=== PATIENT | male | born 1965 | race Caucasian/White ===

== ENCOUNTER 2024-07-04 15:36 | Inpatient (IN) | payer BC ==
--- OUTSIDE RECORDS SUMMARY | 2024-07-04 15:40 | XMS REPORT | Continuity of Care Document ---
Author Name Unknown Address [address] [facility] [address] [place] [address] [facility] Address [address] [facility] [address] [facility] 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 Role Phone Melissa Mathews Primary Care Physician [phone] Ana Cristina Duval Attending Clinician Unavailable AARON LOPEZ Attending Clinician Adam Lopez MD, Aaron Eason Attending Clinician [phone] Reva Mckeon LVN Attending Clinician Melissa Marmolejo MD Attending Clinician + [phone] MELISSA MATHEWS Attending Clinician ERVIN Crowley Attending Clinician Unavail able ERVIN AVILA Attending Clinician Unavail able Ervin Avila MD Attending Clinician [phone] NERI PEREIRA Attending Clinician Unavail able NERI PEREIRA Attending Clinician Unavail able Neri Pereira MD Attending Clinician [phone] NERI PEREIRA Admitting Clinician Unavail able Payers Payer Name Policy Type Policy Number Effective Date Expirati on Date Source [facility] [id number] 2024 00:00:00 [employer] [facility] 6 [id number] [facility] C1 [id number] [facility] Problems Condition Name Condition Details Condition Category Status Onset Date Resolution Date Last Treatment Date Treating Clinician Comments Source 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 Disease Active 2023-03 00:00: 00 Memiveth Mark Epic Chronic constipati on Chronic constipati on Disease Active 2023-03 00:00: 00 Memiveth Mark Epic Allergic rhinitis Allergic rhinitis Disease Active 11-19 00:00: 00 Memoria maldonado Mark Epic Benign essential hypertensi on Benign essential hypertensi on Disease Active 11-19 00:00: 00 Radha Mark Epic Benign prostatic hyperplasi a Benign prostatic hyperplasi a Disease Active 11-19 00:00: 00 Memoria maldonado Mark Epic Chronic GERD Chronic GERD Disease Active 11-19 00:00: 00 Memoria maldonado Mark Epic Type 2 diabetes mellitus Type 2 diabetes mellitus Disease Active 11-19 00:00: 00 Radha Mark Epic Facial numbness Facial numbness Disease Active 11-19 00:00: 00 Memoria maldonado Mark Epic Mixed hyperlipid emia Mixed hyperlipid emia Disease Active 3 00:00: 00 Radha Mark Epic Lower urinary tract symptoms due to benign prostatic hypertroph y Lower urinary tract symptoms due to benign prostatic hyperplasi a Problem [facility] Impotence of organic origin ED (erectile dysfunctio n) Problem [facility] [id number] BPH loc w urin obs/LUTS Problem [facility] [id number] Prostate cancer screening Problem [facility] Allergies, Adverse Reactions, Alerts Allergy Name Allergy Type Status Severity Reaction(s) Onset Date Inactive Date Treating Clinician Comments Source NO KNOWN ALLERGIE S SYSTEMIC Active [facility] ALLERGIE S NOT ON FILE SYSTEMIC Active [facility] NO KNOWN ALLERGIE S SYSTEMIC Active [facility] NO KNOWN ALLERGIE S Drug Class Active [facility] NO KNOWN ALLERGIE S SYSTEMIC Active [facility] NO KNOWN ALLERGIE S SYSTEMIC Active [facility] Social History Social Habit Start Date Stop Date Quantity Comments Source Gender identity 2023-06-03 07:45:05 Identifies as male gender (finding) [facility] History of tobacco use Cigarette Smoker [facility] Sexual orientation M emoriiris [facility] Tobacco use and exposure 2023-11-30 00:00:00 2023-11-30 00:00:00 Smokeless tobacco non-user [facility] History of Social function 2023-11-30 00:00:00 2023-11-30 00:00:00 [facility] Sex assigned at 1965 00:00:00 1965 00:00:00 [facility] Smoking Status Start Date Stop Date Source Tobacco smoking consumption unknown [facility] Smokes tobacco daily Radha Mark [facility] Medications Ordered Medication Name Filled Medication Name Start Date Stop Date Current Medication? Ordering Clinician Indication Dosage Frequency Signature (SIG) Comments Components Source lisinopril 20 MG tablet lisinopril 20 MG tablet 06-02 00:00: 00 Yes [id number] 20mg Q.5D Take 1 tablet by mouth in the morning and 1 tablet in the evening. Goal BP < 130/80. Radha Choi omeprazole (PriLOSEC) [address] capsule omeprazole (PriLOSEC) [address] capsule 06-02 00:00: 00 11-29 23:59 :00 No [id number] 20mg Q24H Take 1 capsule by mouth daily as needed (heartburn /indigesti on). Radha Choi ibuprofen 800 MG tablet ibuprofen 800 MG tablet 06-02 00:00: 00 08-01 23:59 :00 No [id number] 800mg Q.5D Take 1 tablet by mouth 2 times a day as needed for moderate pain (4-6) (pain). Radha Choi atorvastati n (Lipitor) 20 MG tablet atorvastati n (Lipitor) 20 MG tablet 2023-03 00:00: 00 03-28 23:59 :00 No [id number] 20mg Take 1 tablet by mouth at bedtime. Radha Choi tamsulosin (Flomax) 0.4 MG 24 hr capsule tamsulosin (Flomax) 0.4 MG 24 hr capsule 2023-03 00:00: 00 02-21 23:59 :00 No [id number] .4mg QD Take 1 capsule by mouth 1 time each day. Radha Choi metFORMIN XR (Glucophage -XR) 500 MG 24 hr tablet metFORMIN XR (Glucophage -XR) 500 MG 24 hr tablet 2023-03 00:00: 00 08-20 23:59 :00 No [id number] 1000mg Q.5D Take 2 tablets by mouth in the morning and 2 tablets in the evening. Do not crush, chew, or split.. Radha Mark [facility] lisinopril 20 MG tablet lisinopril 20 MG tablet 2023-03 00:00: 00 06-02 00:00 :00 No [id number] 20mg QD Take 1 tablet by mouth 1 time each day. Goal BP < 130/80 Radha Mark [facility] multivit with minerals/jesica tein (MULTIVITAM IN 50 PLUS ORAL) 11-29 12:00: 58 Yes Take by mouth. [facility] sildenafiL 100 mg tablet 11-29 12:00: 34 11-29 00:00 :00 No 100mg Take 1 tablet by mouth once daily as needed. [facility] tamsulosin 0.4 mg 24 hr capsule 11-29 12:00: 12 Yes .4mg Take 1 capsule by mouth in the morning. [facility] omeprazole 20 mg capsule 11-29 12:00: 12 Yes 20mg Take 1 capsule by mouth in the morning. [facility] atorvastati n 10 mg tablet 11-29 12:00: 12 Yes 10mg Take 1 tablet by mouth every evening. [facility] aspirin 81 mg chewable tablet 11-29 12:00: 12 Yes 81mg Take 1 tablet by mouth in the morning. [facility] lisinopriL 20 mg tablet 11-20 00:00: 00 Yes TAKE 2 TABLETS BY MOUTH ONCE DAILY. GOAL BLOOD PRESSURE LESS THAN 130/80. [facility] atorvastati n (Lipitor) 10 MG tablet atorvastati n (Lipitor) 10 MG tablet 11-19 15:03: 44 11-19 00:00 :00 No 10mg Take 10 mg by mouth at bedtime. Radha Choi tamsulosin (Flomax) 0.4 MG 24 hr capsule tamsulosin (Flomax) 0.4 MG 24 hr capsule 11-19 14:06: 42 02-21 00:00 :00 No .4mg QD Take 0.4 mg by mouth 1 time each day. Radha Choi omeprazole (PriLOSEC) [address] capsule omeprazole (PriLOSEC) [address] capsule 11-19 00:00: 00 05-18 23:59 :00 No [id number] 20mg QD Take 1 capsule by mouth 1 time each day. Radha Choi lisinopril 20 MG tablet lisinopril 20 MG tablet 11-19 00:00: 00 02-21 00:00 :00 No [id number] 40mg QD Take 2 tablets by mouth 1 time each day. Goal BP < 130/80 Radha Choi atorvastati n (Lipitor) 20 MG tablet atorvastati n (Lipitor) 20 MG tablet 11-19 00:00: 00 02-21 00:00 :00 No [id number] 20mg Take 1 tablet by mouth at bedtime. Radha Choi buPROPion SR (Wellbutrin SR) 150 MG 12 hr tablet buPROPion SR (Wellbutrin SR) 150 MG 12 hr tablet 11-19 00:00: 00 02-21 00:00 :00 No [id number] 150mg Q.5D Take 1 tablet by mouth in the morning and 1 tablet in the evening. Start with 1 tab daily for 3 days and then increase to twice daily. Do not crush, chew, or split.. Radha Choi metFORMIN XR (Glucophage -XR) 500 MG 24 hr tablet metFORMIN XR (Glucophage -XR) 500 MG 24 hr tablet 11-19 00:00: 00 02-21 00:00 :00 No [id number] 1000mg Q.5D Take 2 tablets by mouth in the morning and 2 tablets in the evening. Do not crush, chew, or split.. Radha Choi iopamidol (ISOVUE 370-500 mL) injection 100 mL 11-15 01:15: 00 11-15 01:15 :00 No [id number] 100mL 100 mL, Intravenou s, ONCE, 1 dose, On Sun11/15/23 at 2014, Routine [facility] omeprazole (PriLOSEC) [address] capsule omeprazole (PriLOSEC) [address] capsule 11-02 00:00: 00 11-19 00:00 :00 No 1{capsu le} QD Take 1 capsule by mouth 1 time each day. Radha Choi Tadalafil 5 MG Tadalafil 5 MG 08 00:00: 00 No 1{table t_as_ne eded} QD Tadalafil 5 MG tadalafiL 5 mg tablet 07-17 00:00: 00 11-29 00:00 :00 No 5mg Take 1 tablet by mouth as needed for Erectile dysfunctio n. [facility] levocetiriz ine (Xyzal Allergy 24HR) 5 MG tablet levocetiriz ine (Xyzal Allergy 24HR) 5 MG tablet 06-01 00:00: 00 Yes 5 mg = 1 tab, PO, QPM, # 90 tab, 1 Refill(s), Pharmacy: [facility], 190.5, cm, 06/08/23 14:56:00 CDT, Height, 137.841, kg, 06/08/23 14:56:00 CDT, Weight Radha Choi sildenafil (Viagra) 100 MG tablet sildenafil (Viagra) 100 MG tablet 2023-0 3-23 00:00: 00 Yes 100 mg = 1 tab, PO, Daily, PRN sexual activity, 1 hour before sexual activity, # 30 tab, 2 Refill(s), Pharmacy: [facility], 190.5, cm, 06/08/23 14:56:00 CDT, Height, 137.841, kg, 06/08/23 14:56:00 CDT, Weight Radha Choi Tadalafil 20 MG Tadalafil 20 MG 06-23 00:00: 00 06-19 00:00 :00 No Tadalafil 20 MG Tadalafil 20 MG Tadalafil 20 MG 06-23 00:00: 00 01-18 00:00 :00 No Tadalafil 20 MG Sildenafil Citrate 100 MG Sildenafil Citrate 100 MG 12-07 00:00: 00 06-05 00:00 :00 No 1{table t_as_ne eded} QD Sildenafil Citrate 100 MG cyclobenzap rine (FLEXERIL) 5 mg tablet 10-22 00:00: 00 11-29 00:00 :00 No 5mg Take 1 tablet by mouth 3 (three) times daily. [facility] pentazocine -naloxone (TALWIN NX) 50-0.5 mg tablet 10-22 00:00: 00 11-29 00:00 :00 No 1{tbl} Take 1 tablet by mouth every 4 (four) hours as needed for Pain for up to 20 doses. [facility] Lisinopril 10 MG Lisinopril 10 MG No 1{table t} QD Lisinopril 10 MG Ibuprofen 800 MG Ibuprofen 800 MG No TID Ibuprofen 800 MG Atorvastati n Calcium 10 MG Atorvastati n Calcium 10 MG No 1{table t} QD Atorvastat in Calcium 10 MG Tamsulosin HCl 0.4 MG Tamsulosin HCl 0.4 MG No 1{capsu le} QD Tamsulosin HCl 0.4 MG Olmesartan Medoxomil 20 MG Olmesartan Medoxomil 20 MG No 1{table t} QD Olmesartan Medoxomil 20 MG metFORMIN HCl 500 MG metFORMIN HCl 500 MG No 1{table t_with_ a_meal} QD metFORMIN HCl 500 MG Tamsulosin HCl 0.4 MG Tamsulosin HCl 0.4 MG No 1{capsu le} QD Tamsulosin HCl 0.4 MG Ibuprofen 800 MG Ibuprofen 800 MG No TID Ibuprofen 800 MG Lisinopril 10 MG Lisinopril 10 MG No 1{table t} QD Lisinopril 10 MG Tadalafil 5 MG Tadalafil 5 MG No 1{table t_as_ne eded} QD Tadalafil 5 MG metFORMIN HCl 500 MG metFORMIN HCl 500 MG No 1{table t_with_ a_meal} QD metFORMIN HCl 500 MG Tamsulosin HCl 0.4 MG Tamsulosin HCl 0.4 MG No 1{capsu le} QD Tamsulosin HCl 0.4 MG Sildenafil Citrate 100 MG Sildenafil Citrate 100 MG No 1{table t_as_ne eded} QD Sildenafil Citrate 100 MG Immunizations Ordered Immunization Name Filled Immunization Name Date Status Comments Source TDAP 2021-03-19 00:00:00 Completed [facility] Tdap Tdap 2021-03-19 00:00:00 Completed [facility] Influenza Virus Vaccine Quad .5 mL IM 6+ MO (FLUZONE/FLULAVAL/FL UARIX) 2018-05-22 00:00:00 Completed [facility] Pneumococcal Polysaccharide, PPSV23 (PNEUMOVAX) 2018-05-22 00:00:00 Completed Influenza, injectable, quadrivalent, preservative free Influenza, injectable, quadrivalent, preservative free 2018-05-22 00:00:00 Completed [facility] Pneumococcal Polysaccharide PPSV23 Pneumococcal Polysaccharide PPSV23 2018-05-22 00:00:00 Completed [facility] Influenza, injectable, quadrivalent, preservative free Influenza, injectable, quadrivalent, preservative free 2015-01-07 00:00:00 Completed [facility] Pneumococcal Conjugate PCV 13 Pneumococcal Conjugate PCV 13 2015-01-07 00:00:00 Completed [facility] Influenza Virus Vaccine Quad .5 mL IM 6+ MO (FLUZONE/FLULAVAL/FL UARIX) Unknown Completed [facility] Pneumococcal Polysaccharide, PPSV23 (PNEUMOVAX) Unknown Completed [facility] TDAP Unknown Completed [facility] Vital Signs Vital Name Observation Time Observation Value Comments S ource Systolic blood pressure 2024-06-02 15:11:00 140 mm[Hg] manual recheck [facility] Diastolic blood pressure 2024-06-02 15:11:00 80 mm[Hg] manual recheck [facility] Heart rate 2024-06-02 14:38:00 78 /min [facility] Body temperature 2024-06-02 14:38:00 36.67 Brigida [facility] Body weight 2024-06-02 14:38:00 139.708 kg [facility] BMI 2024-06-02 14:38:00 38.50 kg/m2 [facility] Oxygen saturation in Arterial blood by Pulse oximetry 2024-06-02 14:38:00 95 /min [facility] Systolic blood pressure 2024-06-02 15:11:00 140 mm[Hg] manual recheck [facility] Diastolic blood pressure 2024-06-02 15:11:00 80 mm[Hg] manual recheck [facility] Epic Heart rate 2024-06-02 14:38:00 78 /min [facility] Body temperature 2024-06-02 14:38:00 36.67 Brigida [facility] Body weight 2024-06-02 14:38:00 139.708 kg [facility] BMI 2024-06-02 14:38:00 38.50 kg/m2 [facility] Epic Oxygen saturation in Arterial blood by Pulse oximetry 2024-06-02 14:38:00 95 /min [facility] Systolic blood pressure 2024-02-22 15:19:00 149 mm[Hg] [facility] Diastolic blood pressure 2024-02-22 15:19:00 89 mm[Hg] [facility] Heart rate 2024-02-22 15:19:00 73 /min [facility] Body temperature 2024-02-22 15:19:00 37 Brigida [facility] Body height 2024-02-22 15:19:00 190.5 cm [facility] Body weight 2024-02-22 15:19:00 140.615 kg [facility] BMI 2024-02-22 15:19:00 38.75 kg/m2 [facility] Systolic blood pressure 2024-02-22 15:19:00 149 mm[Hg] [facility] Diastolic blood pressure 2024-02-22 15:19:00 89 mm[Hg] [facility] Heart rate 2024-02-22 15:19:00 73 /min [facility] Body temperature 2024-02-22 15:19:00 37 Brigida [facility] Body height 2024-02-22 15:19:00 190.5 cm [facility] Body weight 2024-02-22 15:19:00 140.615 kg [facility] BMI 2024-02-22 15:19:00 38.75 kg/m2 [facility] Systolic blood pressure 2023-11-30 16:58:00 136 mm[Hg] [facility] Diastolic blood pressure 2023-11-30 16:58:00 84 mm[Hg] [facility] Heart rate 2023-11-30 16:57:00 81 /min [facility] Respiratory rate 2023-11-30 16:57:00 18 /min [facility] Body height 2023-11-30 16:57:00 195.6 cm [facility] Body weight 2023-11-30 16:57:00 141.023 kg [facility] BMI 2023-11-30 16:57:00 36.87 kg/m2 [facility] Oxygen saturation in Arterial blood by Pulse oximetry 2023-11-30 16:57:00 97 /min [facility] Systolic blood pressure 2023-11-20 13:59:00 146 mm[Hg] [facility] Diastolic blood pressure 2023-11-20 13:59:00 87 mm[Hg] [facility] Heart rate 2023-11-20 13:59:00 71 /min [facility] Body height 2023-11-20 13:59:00 190.5 cm [facility] Body weight 2023-11-20 13:59:00 141.069 kg [facility] BMI 2023-11-20 13:59:00 38.87 kg/m2 [facility] Systolic blood pressure 2023-11-20 13:59:00 146 mm[Hg] [facility] Diastolic blood pressure 2023-11-20 13:59:00 87 mm[Hg] [facility] Heart rate 2023-11-20 13:59:00 71 /min [facility] Body height 2023-11-20 13:59:00 190.5 cm [facility] Body weight 2023-11-20 13:59:00 141.069 kg [facility] BMI 2023-11-20 13:59:00 38.87 kg/m2 [facility] Systolic blood pressure 2023-11-16 02:00:00 162 mm[Hg] [facility] Diastolic blood pressure 2023-11-16 02:00:00 90 mm[Hg] [facility] Heart rate 2023-11-16 02:00:00 73 /min [facility] Body temperature 2023-11-16 02:00:00 37 Brigida [facility] Respiratory rate 2023-11-16 02:00:00 22 /min [facility] Oxygen saturation in Arterial blood by Pulse oximetry 2023-11-16 02:00:00 97 /min [facility] Body height 2023-11-15 22:02:00 195.6 cm [facility] Body weight 2023-11-15 22:02:00 136.986 kg [facility] BMI 2023-11-15 22:02:00 35.81 kg/m2 [facility] height 2023-07-18 09:30:00 76 [in_i] [facility] weight 2023-07-18 09:30:00 300 [lb_av] [facility] temperature 2023-07-18 09:30:00 98.1 [degF] [facility] bmi 2023-07-18 09:30:00 36.51 kg/m2 [facility] oximetry 2023-07-18 09:30:00 99 % [facility] respiratory rate 2023-07-18 09:30:00 18 /min [facility] blood pressure systolic 2023-07-18 09:30:00 167 mm[Hg] [facility] blood pressure diastolic 2023-07-18 09:30:00 78 mm[Hg] [facility] height 2022-07-14 10:30:00 76 [in_i] [facility] weight 2022-07-14 10:30:00 303 [lb_av] [facility] temperature 2022-07-14 10:30:00 98.5 [degF] [facility] bmi 2022-07-14 10:30:00 36.88 kg/m2 [facility] oximetry 2022-07-14 10:30:00 96 % [facility] respiratory rate 2022-07-14 10:30:00 16 /min [facility] blood pressure systolic 2022-07-14 10:30:00 146 mm[Hg] [facility] blood pressure diastolic 2022-07-14 10:30:00 78 mm[Hg] [facility] height 2021-06-23 08:00:00 76 [in_i] [facility] weight 2021-06-23 08:00:00 307 [lb_av] [facility] temperature 2021-06-23 08:00:00 97.7 [degF] [facility] bmi 2021-06-23 08:00:00 37.37 kg/m2 [facility] oximetry 2021-06-23 08:00:00 97 % [facility] respiratory rate 2021-06-23 08:00:00 18 /min [facility] blood pressure systolic 2021-06-23 08:00:00 195 mm[Hg] [facility] blood pressure diastolic 2021-06-23 08:00:00 89 mm[Hg] [facility] height 2020-12-07 16:40:00 76 [in_i] [facility] weight 2020-12-07 16:40:00 310 [lb_av] [facility] temperature 2020-12-07 16:40:00 96.8 [degF] [facility] bmi 2020-12-07 16:40:00 37.73 kg/m2 [facility] oximetry 2020-12-07 16:40:00 97 % [facility] blood pressure systolic 2020-12-07 16:40:00 184 mm[Hg] [facility] blood pressure diastolic 2020-12-07 16:40:00 87 mm[Hg] [facility] Procedures Procedure Date / Time Performed Performing Clinician Source POCT HEMOGLOBIN A1C (INTRFC) 2024-06-02 15:24:00 Aaron Lopez [facility] Basic metabolic panel 2024-06-02 00:00:00 [facility] COMPREHENSIVE METABOLIC PANEL 2024-02-22 16:05:00 [facility] PROSTATE SPECIFIC ANTIGEN TOTAL 2024-02-22 [facility] W/DIFF AND PLATELET 2024-02-22 16:05:00 [facility] ALBUMIN-CREATININE RATIO URINE 2024-02-22 16:05[facility] HEMOGLOBIN A1C (INTRFC) 2024-02-22 15:22:00 [facility] POCT HEMOGLOBIN A1C (INTRFC) 2023-11-20 15:07:[facility] w/calculated LDL 2023-11-20 00:00:[address] [facility] [address] ANGIOGRAM HEAD 2023-11-16 00:27:47 Neri Pereira [facility] CT ANGIOGRAM NECK 2023-11-16 00:27:47 Neri Pereira [facility] CT HEAD WO CONTRAST 2023-11-16 00:16:29 Neri Pereira [facility] XR CHEST 1 VW 2023-11-15 22:54:00 Neri Pereira [facility] MAGNESIUM 2023-11-15 22:31:00 Neri Pereira [facility] TROPONIN I 2023-11-15 22:31:00 Neri Pereira [facility] THYROID STIMULATING HORMONE 2023-11-15 22:31:00 Neri Pereira [facility] COMP. METABOLIC PANEL ([id number]) 2023-11-15 22:31:00 Neri Pereira [facility] CBC WITH DIFF 2023-11-15 22:31:00 Neri Pereira [facility] PROTHROMBIN TIME / INR 2023-11-15 22:31:00 Ham Pereira [facility] ACTIVATED PARTIAL THRMPLAS OLE 2023-11-15 22:31:00 Neri Pereira [facility] N-TERMINAL PRO-BNP 2023-11-15 22:31:00 Neri Pereira [facility] Encounters Start Date/Time End Date/Time Encounter Type Admission Type Attending [facility] Care Department Encounter ID Source 2022-07-13 09:53:00 Outpatient Ana Cristina Duval [facility] [id number] [facility] 2021-05-13 13:49:00 Outpatient Ana Cristina Duval [facility] [id number] [facility] 2021-04-06 14:10:42 Outpatient [facility] [id number] [facility] 2021-04-06 11:58:22 Outpatient [facility] [id number] [facility] 2024-06-02 14:22:42 2024-06-02 15:38:00 Outpatient Elective AARON LOPEZ [facility] [id number] [facility] 2024-06-02 14:20:00 2024-06-02 15:38:00 Office Visit Aaron Lopez [id number] Radha Mark [facility] 2023-11-29 00:00:00 2024-04-26 06:57:14 Orders Only Reva Mckeon, Reva [facility] 1..840.114 350.1.13.10 [id number] [id number] [facility] 2023-11-30 00:00:00 2024-04-26 06:56:44 Orders Only Linda, Reva Linda, Reva [facility] BUILD[facility] [id number] 350.1.13.10 [id number] [id number] [facility] 2024-02-22 15:20:00 2024-02-22 16:13:38 Office Visit Good ThunderZaraMelissa [place] 1.840.114 [id number] [id number] 2024-02-22 15:04:26 2024-02-22 16:13:38 [id number] 2023-12-12 00:00:00 2023-12-12 00:00:00 Outpatient ERVIN RAMIREZ [facility] [id number] [facility] 2023-11-15 00:00:00 2023-12-05 15:50:26 Telephone Melissa Mathews [place] 1..840.114 [id number] [id number] [id number] [facility] 2023-11-30 12:00:00 2023-11-30 12:38:24 Outpatient ERVIN RAMIREZ [facility] [id number] [facility] 2023-11-30 12:00:00 2023-11-30 12:38:24 Office Visit Ervin Avila [facility] MED[facility] BUILD[facility] 1..840.114 350.1.13.10 [id number] [id number] [facility] 2023-11-20 14:00:00 2023-11-20 15:20:04 Office Visit Melissa Mathews [facility] [id number] [id number] Radha Mark [facility] 2023-11-20 13:22:03 2023-11-20 15:20:04 Outpatient Elective MELISSA MATHEWS [facility] [id number] [facility] 2023-11-15 17:04:00 2023-11-15 21:19:00 Emergency X NERI PEREIRA [facility] ERT [id number] [facility] 2023-11-15 17:04:00 2023-11-15 21:19:00 Emergency Neri Pereira [facility] [id number] [id number] [id number] [facility] 2023-07-18 00:00:00 2023-07-18 00:00:00 OFFICE VISIT ESTAB PT LEVEL 4 [facility]C ST[facility]C [id number] [facility] 2022-07-14 00:00:00 2022-07-14 00:00:00 OFFICE VISIT ESTAB PT LEVEL 3 [facility]C STL[facility]C [id number] [facility] 2021-11-16 00:00:00 2021-11-16 00:00:00 (TEL) STLMLC STLMLC [id number] [facility] 2021-06-23 00:00:00 2021-06-23 00:00:00 OFFICE VISIT ESTAB PT LEVEL 4 STLMLC STLMLC [id number] [facility] 2020-12-07 00:00:00 2020-12-07 00:00:00 OFFICE VISIT EST PT LEVEL 3 STLMLC STLMLC [id number] [facility] 2020-01-02 00:00:00 2020-01-02 00:00:00 Outpatient STLMLC STLC [id number] [facility] Results Test Description Test Time Test Comments Results Result Co mments Source [facility] [id number] 16:04:18* Test Item Value Reference Range Interpretation Comme nts WBC X 10x3 (test code = 6690-2) See_Comment H [Automated [employer]] The system which generated this result transmitted reference range: 3.8 - 10.8 Thousand/uL. The reference range was not used to interpret this result as normal/abnormal. RBC X 10x6 (test code = 789-8) See_Comment [Automated [employer]] The system which generated this result transmitted reference range: 4.20 - 5.80 Million/uL. The reference range was not used to interpret this result as normal/abnormal. Hgb (test code = 718-7) 14.7 g/dL 13.2-17.1 Hct (test code = 4544-3) 43.9 % 38.5-50.0 MCV (test code = 787-2) 87.1 fL 80.0-100.0 MCH (test code = 785-6) 29.2 pg 27.0-33.0 MCHC (test code = 786-4) 33.5 g/dL 32.0-36.0 For adults, a sl ight decrease in the calculated MCHCvalue (in the range of 30 to 32 g/dL) is most likelynot clinically significant; however, it should beinterpreted with caution in correlation with otherred cell parameters and the patient's clinicalcondition. RDW (test code = 788-0) 12.5 % 11.0-15.0 Platelet (test code = 777-3) See_Comment [Automated [employer]] The system which generated this result transmitted reference range: 140 - 400 Thousand/uL. The reference range was not used to interpret this result as normal/abnormal. MPV (test code = 776-5) 12.3 fL 7.5-12.5 Segs # (test code = 751-8) See_Comment [Automated [employer]] The system which generated this result transmitted reference range: 1,500 - 7,800 cells/uL. The reference range was not used to interpret this result as normal/abnormal. Lymphocytes # (test code = 731-0) See_Comment H [Automated messa ge] The system which generated this result transmitted reference range: 850 - 3,900 cells/uL. The reference range was not used to interpret this result as normal/abnormal. Monocytes # (test code = 742-7) See_Comment [Automated messa ge] The system which generated this result transmitted reference range: 200 - 950 cells/uL. The reference range was not used to interpret this result as normal/abnormal. Eosinophils # (test code = 711-2) See_Comment [Automated messa ge] The system which generated this result transmitted reference range: 15 - 500 cells/uL. The reference range was not used to interpret this result as normal/abnormal. Basophils # (test code = 704-7) See_Comment [Automated messa ge] The system which generated this result transmitted reference range: 0 - 200 cells/uL. The reference range was not used to interpret this result as normal/abnormal. Segs % (test code = 770-8) 55.8 % Lymphocytes (test code = 736-9) 36 % Monocytes (test code = 5905-5) 5.4 % Eos % (test code = 713-8) 2.3 % Basophils (test code = 706-2) 0.5 % ERICH (test code = ERICH) Lab Interpretation (test code = 16752-7) Abnormal [facility] Metabolic [id number] 16:04:18* Test Item Value Reference Range Interpretation Comme nts Glucose Lvl (test code = 2345-7) 126 mg/dL 65-139 . Non-fasting reference interval. BUN (test code = 3094-0) 12 mg/dL 7-25 Creatinine Lvl (test code = 2160-0) 0.76 mg/dL 0.70-1.30 eGFR (test code = 43118-8) See_Comment [Automated messa ge] The system which generated this result transmitted reference range: > OR = 60 mL/min/1.73m2. The reference range was not used to interpret this result as normal/abnormal. B/C Ratio (test code = 3097-3) SEE NOTE: See_Comment ? Not Reported: BUN and Creatinine are within ? reference range.. [Automated message] The system which generated this result transmitted reference range: 6 - 22 (calc). The reference range was not used to interpret this result as normal/abnormal. Sodium Lvl (test code = 2951-2) 139 mmol/L 135-146 Potassium Lvl (test code = 2823-3) 4.3 mmol/L 3.5-5.3 Chloride Lvl (test code = 2075-0) 100 mmol/L 98-110 CO2 Lvl (test code = 8-9) 30 mmol/L 20-32 Calcium Lvl (test code = 68974-4) 9.7 mg/dL 8.6-10.3 Total Protein (test code = 2885-2) 7.5 g/dL 6.1-8.1 Albumin Lvl (test code = 1751-7) 4.7 g/dL 3.6-5.1 Globulin (test code = 02652-7) See_Comment [Automated [employer]] The system which generated this result transmitted reference range: 1.9 - 3.7 g/dL (calc). The reference range was not used to interpret this result as normal/abnormal. A/G Ratio (test code = 1759-0) See_Comment [Automated [employer]] The system which generated this result transmitted reference range: 1.0 - 2.5 (calc). The reference range was not used to interpret this result as normal/abnormal. Bili Total (test code = 1975-2) 0.5 mg/dL 0.2-1.2 Alk Phos (test code = 6768-6) 95 U/L 35-144 AST (test code = 1920-8) 11 U/L 10-35 ALANINE AMINOTRANSFERASE (test code = 1742-6) 16 U/L 9-46 ERICH (test code = ERICH) [facility] 16:04:18* Test Item Value Reference Range Interpretation Comme nts PSA (test code = 2857-1) 0.45 ng/mL See_Comment The total PSA va lue from this assay system is standardized against the WHO standard. The test result will be approximately 20% lower when compared to the equimolar-standardized total PSA (Sandor Stormy). Comparison of serial PSA results should be interpreted with this fact in mind..This test was performed using the Siemens chemiluminescent method. Values obtained from different assay methods cannot be usedinterchangeably. PSA levels, regardless ofvalue, should not be interpreted as absoluteevidence of the presence or absence of disease. [Automated message] The system which generated this result transmitted reference range: < OR = 4.00. The reference range was not used to interpret this result as normal/abnormal. ERICH (test code = ERICH) [facility] EpicMicroalbumin / creatinine, urine [id number] 16:04:17* Test Item Value Reference Range Interpretation Comme nts U Creat mg/dL (test code = 2161-8) 42 mg/dL 20-320 U Alb (test code = 34487-2) 0.2 mg/dL Reference RangeN ot established U Alb/Crea (test code = 9318-7) See_Comment .The ADA defines abnormalities in albuminexcretion as follows:.Albuminuria Category Result (mg/g creatinine).Normal to Mildly increased <30Moderately increased 30-299 Severely increased > OR = 300.The ADA recommends that at least two of threespecimens collected within a 3-6 month period beabnormal before considering a patient to bewithin a diagnostic category. [Automated message] The system which generated this result transmitted reference range: <30 mg/g creat. The reference range was not used to interpret this result as normal/abnormal. ERICH (test code = ERICH) [facility] EpicPOCT Hemoglobin A1c (INTRFC)2024-02-22 15:26:06* Test Item Value Reference Range Interpretation Comme [facility] Hemoglobin A1C (test code = 4548-4) 8.2 % 4.0-5.6 A POC Device (test code = 3198) POC Oper ID (test code = 3197) POC Performing Location (test code = 8009) [facility]ND[facility] POCT INTERP (test code = 2757) %A1c interp: <5.7 nondiabetic; 5.7-6.4 prediabetic; <7 controlled Lab Interpretation (test code = 52980-1) [facility]normal [facility]23-[facility]20 15:10:19* Test Item Value Reference Range Interpretation Comme nts Hemoglobin A1C (test code = 4548-4) 8.1 % 4.0-5.6 A POC Device (test code = 3198) POC Oper ID (test code = 3197) POC Performing Location (test code = 3249) UC-MG-NDVL POCT INTERP (test code = 2757) %A1c interp: <5.7 nondiabetic; 5.7-6.4 prediabetic; <7 controlled Lab Interpretation (test code = 52036-4) [facility] [id number] 00:49:53CT HEAD WO CONTRAST HISTORY: Neuro deficit, acute, stroke suspected COMPARISON: None TECHNIQUE: Cont iguous axial imaging to the base of skull was obtained with2.5 mm slices without intravenous contrast. 5 mm axial, coronal, andsagittal reformats were obtained. FINDINGS: The ventricles and cerebral sulci are normal in caliber and configuration.No hydrocephalus, midline shift or pathological extra-axial fluidcollection is present. The basal cisterns are unremarkable. There is no acute intracranial hemorrhage or significant mass effect. Noparenchymal attenuation abnormality. The garcia-white matter differentiationis preserved. The mastoid air cells and paranasal air sinuses are essentially clearwithmild inflammatory changes seen in the partially visualized ethmoidal aircells. The calvarium and central skull base are unremarkable.[facility] RDDS1225-04-21 00:40:39CT ANGIOGRAM HEAD, CT ANGIOGRAM NECK HISTORY: Male 58 years Neuro deficit, acute, stroke suspected COMPARISON: CT head dated 11/15/2023 TECHNIQUE: Routine CTA head and neck were performed followingadministration of 80 mL IV Isovue FINDINGS: CTA head: The PICA origin is visualized bilaterally. Both PICA origins areextradural. The basilar artery is normal in caliber. The superiorcerebellar arteries are patent. The posterior cerebral arteries are patent.No sizable posterior communicating arteries are visualized. The distal cervical, petrous, cavernous and supraclinoid internal carotidartery segments are patent. The anterior and middle cerebral arteries are patent. The right A1 segmentis hypoplastic or absent and the right A2 segment arises from the left [id number]. Multifocal mild stenoses are noted in the M1 segments. The dural venous sinuses are patent. CTA NECK: Classic 3 vessel aortic arch branching anatomy is noted. The arch and archvessel origins are widely patent. The innominate subclavian arteries arewidely patent. The common carotid arteries, carotid bulbs and cervical internal carotidarteries are patent. Minimal atherosclerotic plaque is seen in the leftcarotid bulb. Noncalcified plaque or wall thickening is noted within theproximal right cervical ICA. The right ICA is diffusely, mildly hypoplasticrelative to the left. The vertebral arteries are patent from their subclavian origins through thevertebrobasilar junction. The left vertebral artery is dominant and theright isdevelopmentally hypoplastic.[facility] [id number] 00:40:39CT ANGIOGRAM HEAD, CT ANGIOGRAM NECK HISTORY: Male 58 years Neuro deficit, acute, stroke suspected COMPARISON: CT head dated 11/15/2023 TECHNIQUE: Routine CTA head and neck were performed followingadministration of 80 mL IV Isovue FINDINGS: CTA head: The PICA origin is visualized bilaterally. Both PICA origins areextradural. The basilar artery is normal in caliber. The superiorcerebellar arteries are patent. The posterior cerebral arteries are patent.No sizable posterior communicating arteries are visualized. The distal cervical, petrous, cavernous and supraclinoid internal carotidartery segments are patent. The anterior and middle cerebral arteries are patent. The right A1 segmentis hypoplastic or absent and the right A2 segment arises from the left [id number]. Multifocal mild stenoses are noted in the M1 segments. The dural venous sinuses are patent. CTA NECK: Classic 3 vessel aortic arch branching anatomy is noted. The arch and archvessel origins are widely patent. The innominate subclavian arteries arewidely patent. The common carotid arteries, carotid bulbs and cervical internal carotidarteries are patent. Minimal atherosclerotic plaque is seen in the leftcarotid bulb. Noncalcified plaque or wall thickening is noted within theproximal right cervical ICA. The right ICA is diffusely, mildly hypoplasticrelative to the left. The vertebral arteries are patent from their subclavian origins through thevertebrobasilar junction. The left vertebral artery is dominant and theright isdevelopmentally hypoplastic. [facility]ST 1 [id number] 23:33:27Study: Single view chest. Ordering Physician: CAMACHO PEREIRA Date: 11/15/2023 5:15 PM History:malaise COMPARISON: None. Findings: Single frontal view chest demonstrates a normal heart size. Thelungs are clear without infiltrate, pleural effusion or pneumothorax. 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 Was trying to get it into a trailer and fell, cow trampled on his back. He is in pain on left side of back and thinking that's why his BP is elevated. Requested Ibuprofen 800. Aaron Lopez MD - 06/02/2024 2:20 PM CDT Subjective Patient ID: Dave Deshpande is a 58 y.o. male who presents for Hypertension (Patient is present for high blood pressure. /Didn't take his medication from Sunday until this morning. Patient had a physical this morning and was told to come into clinic by his work due to HTN. ). Patient had physical for his job today and systolic bp was in 180s. He admits to not taking his medication since last Sunday because he was out of town. He denies any headaches, chest pains or shortness of breath. He does not routinely check his bp at home. He at one point was instructed to increase 40mg of lisinopril but he never did. He also has right back pain and requests refill of ibuprofen 800. He reports only taking them sparingly for severe back pains. Review of Systems Constitutional: Negative for fatigue. Respiratory: Negative. Cardiovascular: Negative. Musculoskeletal: Positive for back pain. Objective Visit Vitals BP 140/80 Comment: manual recheck Pulse 78 Temp 36.7 ?C (98 ?F) (Oral) Wt (!) 140 kg (308 lb) SpO2 95% BMI 38.50 kg/m? Smoking Status Every Day BSA 2.72 m? Physical Exam: Vitals and nursing note reviewed. Constitutional: General: He is not in acute distress. Cardiovascular: Rate and Rhythm: Normal rate and regular rhythm. Pulmonary: Effort: Pulmonary effort is normal. Breath sounds: Normal breath sounds. Musculoskeletal: Thoracic back: Tenderness (right side) present. No swelling, edema, deformity, lacerations or spasms. Neurological: Mental Status: He is alert. Assessment & Plan Essential (primary) hypertension Increase lisinopril to 40mg daily. Twice daily dosing. Closely monitor bp. Check lab as noted. Orders: lisinopril 20 MG tablet; Take 1 tablet by mouth in the morning and 1 tablet in the evening. Goal BP < 130/80. Basic metabolic panel; Future Acute right-sided thoracic back pain Ibuprofen prn. Counseled on use and potential side effects. Take with food. Alternate ice/ heat to area. Orders: ibuprofen 800 MG tablet; Take 1 tablet by mouth 2 times a day as needed for moderate pain (4-6) (pain). Type 2 diabetes mellitus with hyperglycemia, without long-term current use of insulin (HCC) POC A1c improved to 7.2. Continue dietary changes. Continue metformin. Orders: POCT Hemoglobin A1c (INTRFC) Basic metabolic panel; Future Follow up in 3 months or sooner for any concerns. Aaron Lopez MD [facility] Scheduled Orders Name Type Priority Associated Diagnoses Orde r Schedule Basic metabolic panel Lab Routine Essential (primary) hypertension Type 2 diabetes mellitus with hyperglycemia, without long-term current use of insulin (HCC) Expected: 06/02/2024 (Approximate), Expires: 06/02/2025 Health Maintenance Due Date Last Done Comments CT Colonography 1967 FIT-DNA 1967 FIT 1967 FOBT 1967 Sigmoidoscopy 1967 Annual Physical 06/03/1970 Diabetes: Foot Exam 06/03/1977 Diabetes: Retinopathy Screening 06/03/1977 Hepatitis B Vaccines (1 of 3 - 19+ 3-dose series) 06/03/1986 Zoster Vaccines (1 of 2) 06/03/2017 Pneumococcal Vaccine: 50+ Years (3 of 3 - PCV20 or PCV21) 05/23/2023 05/22/2018, 01/07/2015 Pneumococcal Vaccine: Pediatrics (0 to 5 Years) and At-Risk Patients (6 to 64 Years) (3 of 3 - PCV20 or PCV21) 05/23/2023 05/22/2018, 01/07/2015 Influenza Vaccine (#1) 2023 05/22/2018, 2014 Lipid Panel 11/19/2024 11/20/2023, 05/11, 06/01/2022, Additional history exists Diabetes: Hemoglobin A1C 12/03/2024 025, 02/22/2024, 11/20/2023, Additional history exists Diabetes: Urine Protein Screening 02/21/2025 02/22/2024, 06/01/2022, 11/30/2021, Additional history exists Colonoscopy 12/05/2027 12/04/2017 Colorectal Cancer Screening 12/05/2027 DTaP/Tdap/Td Vaccines (2 - Td or Tdap) 03/19/2031 03/19/2021 HIB Vaccines Aged Out No longer eligi ble based on patient's age to complete this topic HPV Vaccines Aged Out No longer eligi ble based on patient's age to complete this topic Hepatitis A Vaccines Aged Out No long er eligible based on patient's age to complete this topic IPV Vaccines Aged Out No longer eligi ble based on patient's age to complete this topic Meningococcal Vaccine Aged Out No darion tommy eligible based on patient's age to complete this topic Rotavirus Vaccines Aged Out No longer eligible based on patient's age to complete this topic [id number] 16:41:42 Diagnosis Acute right-sided thoracic b ack pain - Primary Essential (primary) hypertension Unspecified essential hypertension Type 2 diabetes mellitus wit h hyperglycemia, without long-term current use of insulin (HCC) [id number] 16:41:42 [facility] [id number] 21:48:27* [facility] [id number] 21:48:27* Melissa Mathews MD - 02/22/2024 3:20 PM REAL ESTATE ADMINISTRATIVE ASSISTANT Subjective Patient ID: Dave Deshpande is a 58 y.o. male who presents for 3 month follow up DM. Acute: No acute issues or concerns. Chronic: Only taking the Metformin 500 mg BID. Not checking CBGs at home. Due for DM-II eye exam. Denies any polyphagia, polyuria, or polydipsia. Denies any numbness/tingling of extremities. Denies any wounds or infections. Taking Lisinopril 20 mg every day. Reports that BP is < 130/80 when checks at home. Denies any CP, palpitations, SOB, light-headedness/dizziness, ROWE, visual changes, tinnitus, hearing changes, or LE edema. Denies any other motor/sensory issues. Taking Atrovastatin 20 mg everyday w/o issue. Reports mod cholesterol/tamar diet. Using Omeprazole 20 mg PRN. Tries to be mindful of diet/lfistyle chagnes. Using Flomax w/o issue. Denies sig urinary issues at this time HCM: Colon: Had in [place] in 03/2022, reports 5 year follow up. Lung: Informed refusal Aorta: Due at 67. Prostate: UTD ASCVD: The 10-year ASCVD risk score (Mikki TAMEZ, et al., 2019) is: 30.1% Values used to calculate the score: Age: 58 years Sex: Male Is Non- : No Diabetic: Yes Tobacco smoker: Yes Systolic Blood Pressure: 149 mmHg Is BP treated: Yes HDL Cholesterol: 30 mg/dL Total Cholesterol: 139 mg/dL Anxiety/Depression: Denies Sexual Health: Stable, Viagra didn't work Doesn't desire Urology referral for other options. Vision/Hearing/Dental: Denies ay sig issues. Immunizations: Informed refusal. Review of Systems Objective Blood pressure 149/89, pulse 73, temperature 37 ?C (98.6 ?F), height 1.905 m (6' 3"), weight (!) 141 kg (310 lb). Physical Exam: Vitals reviewed. Constitutional: Appearance: Normal appearance. HENT: Head: Normocephalic and atraumatic. Right Ear: Tympanic membrane normal. Left Ear: Tympanic membrane normal. Mouth/Throat: Mouth: Mucous membranes are moist. Pharynx: Oropharynx is clear. Eyes: Extraocular Movements: Extraocular movements intact. Pupils: Pupils are equal, round, and reactive to light. Cardiovascular: Rate and Rhythm: Normal rate and regular rhythm. Pulses: Normal pulses. Pulmonary: Effort: Pulmonary effort is normal. Abdominal: General: Abdomen is flat. Palpations: Abdomen is soft. Musculoskeletal: General: Normal range of motion. Cervical back: Normal range of motion. Right lower leg: No edema. Left lower leg: No edema. Skin: General: Skin is warm and dry. Capillary Refill: Capillary refill takes less than 2 seconds. Neurological: General: No focal deficit present. Mental Status: He is alert and oriented to person, place, and time. Psychiatric: Mood and Affect: Mood normal. Assessment & Plan Essential (primary) hypertension -BP elevated in office, but pt reports WNL at home. Continue Lisinopril 20 mg, didn't increase to 40 mg after last appt. Counseled on diet/lifestyle/exercise modifications for optimization. Orders: lisinopril 20 MG tablet; Take 1 tablet by mouth 1 time each day. Goal BP < 130/80 Mixed hyperlipidemia -Continue statin as rx. Counseled on diet/lifestyle/exercise modifications for optimization. Orders: atorvastatin (Lipitor) 20 MG tablet; Take 1 tablet by mouth at bedtime. Benign prostatic hyperplasia, unspecified whether lower urinary tract symptoms present -Continue Flomax 0.4 mg as rx. PSA today. Orders: tamsulosin (Flomax) 0.4 MG 24 hr capsule; Take 1 capsule by mouth 1 time each day. Type 2 diabetes mellitus with hyperglycemia, without long-term current use of insulin (HCC) -A1c not at goal, pt doesn't want to use alternative medication at this time. Increase Metformin to 1000 mg BID. Counseled on diet/lifestyle/exercise modifications for optimization. Orders: POCT Hemoglobin A1c (INTRFC) Microalbumin / creatinine, urine ratio; Future CBC and differential; Future Comprehensive Metabolic Panel; Future metFORMIN XR (Glucophage-XR) 500 MG 24 hr tablet; Take 2 tablets by mouth in the morning and 2 tablets in the evening. Do not crush, chew, or split.. History of TIAs -Possible TIAs in the past, continue to optimize HTN/DM-II. Recommend ASA 81 mg and Statin. Orders: atorvastatin (Lipitor) 20 MG tablet; Take 1 tablet by mouth at bedtime. Prostate cancer screening Orders: PSA; Future [facility]2024-12-15 21:48:27 [id number] 21:48:27 Diagnosis Mixed hyperlipidemia - Prima ry Essential (primary) hypertension Unspecified essential hypertension Benign prostatic hyperplasia , unspecified whether lower urinary tract symptoms present Type 2 diabetes mellitus wit h hyperglycemia, without long-term current use of insulin (HCC) History of TIAs Prostate cancer screening Special screening for malignant neoplasm of prostate [id number] 21:48:27 [place] [id number] 15:50:34* [facility] [id number] 15:50:34* Audit- C Score Answer Date of Assessment Author -1 11/20/2023 1:13 PM CDT Yarely Bhatt * Q1: How often do you have a drink containing alcohol? Answer Date of Assessment Author Monthly or less 11/20/2023 1:13 PM Yarely Tirado * Q2: How many drinks containing alcohol do you have on a typical day when you are drinking? Answer Date of Assessment Author Patient declined 11/20/2023 1:13 PM Prashanth Tirado * Q3: How often do you have six or more drinks on one occasion? Answer Date of Assessment Author Patient declined 11/20/2023 1:13 PM Prashanth Tirado * Over the past 2 weeks, how often have you been bothered by any of the following problems? Question Answer Date of Assessment Author Patient Health Questionnaire-2 Score 0 11/10 1:15 PM Tara Tirado * Little interest or pleasure in doing things Answer Date of Assessment Author Not at all 11/20/2023 1:15 PM Yarely Tiraod * Feeling down, depressed, or hopeless Answer Date of Assessment Author Not at all 11/20/2023 1:15 PM Yarely Tirado [id number] 15:50:34Upcoming Encounters Health Maintenance Due Date Last Done Comments CT Colonography 1967 FIT-DNA 1967 FIT 1967 FOBT 1967 Sigmoidoscopy 1967 Diabetes: Foot Exam 06/03/1977 Diabetes: Retinopathy Screening 06/03/1977 Hepatitis B Vaccines (1 of 3 - 19+ 3-dose series) 06/03/1986 Zoster Vaccines (1 of 2) 06/03/2017 Diabetes: Urine Protein Screening 06/02/2023 06/01/2022, 11/30/2021, 06/01/2021 Influenza Vaccine (#1) 2023 05/22/2018, 2014 Lipid Panel 11/19/2024 11/20/2023, 05/11, 06/01/2022, Additional history exists Colonoscopy 12/05/2027 12/04/2017 Colorectal Cancer Screening 12/05/2027 DTaP/Tdap/Td Vaccines (2 - Td or Tdap) 03/19/2031 03/19/2021 Pneumococcal Vaccine: Pediatrics (0 to 5 Years) and At-Risk Patients (6 to 64 Years) (3 of 3 - PPSV23 or PCV20) 06/03/2032 05/22/2018, 01/07/2015 HIB Vaccines Aged Out No longer eligi ble based on patient's age to complete this topic HPV Vaccines Aged Out No longer eligi ble based on patient's age to complete this topic Hepatitis A Vaccines Aged Out No long er eligible based on patient's age to complete this topic IPV Vaccines Aged Out No longer eligi ble based on patient's age to complete this topic Meningococcal Vaccine Aged Out No darion tommy eligible based on patient's age to complete this topic Rotavirus Vaccines Aged Out No longer eligible based on patient's age to complete this topic [id number] 15:50:34 [facility] [id number] 15:44:25* [facility] [id number] 15:44:25* Melissa Mathews MD - 11/20/2023 2:00 PM CDT Subjective Patient ID: Dave Deshpande is a 58 y.o. male who presents for Follow-up (Hospital ). Acute; No acute concerns or complaints. Chronic: HTN: Taking Lisinopril 20 mg every day w/o issue. BP has been in systolic 130s-140s/70s-80s. Denies any CP, SOB, light-headedness/dizziness, palpitations. Had episode last week with numbness in L arm and L face that lasted for approx 10-15 seconds but happened two times. Went to [facility], had CT or Neck and Head w/o acute or signficant abnormalities. Denies any neck pain, shoulder pain, change in activity/level. No rashes. No tick bites. No recent dental work or oral/facial trauma. Taking ASA 81 mg since episode per ED recommendation. Also taking Atorvastin 10 mg, chronically. Has appt with Neurology on 11/29 for further evaluation. DM-II: Checks sugars occasionally, Am fastin in 130s when does check. Not taking medications at this time, had low carb diet. Denies any numbness/tingling or hand/feet. Denies any polyphaga, polyuria, polydipsia. Denies any recent infection or wounds. Needs DM-II eye exam. HCM: Prostate: PSA UTD., but will be due at next visit.. Denies urinary symtpoms with Flomax and uses Viagra for ED (but has issue with cost) Follows with Urology, Dr. Mayo. Colon: Reports Colonoscopy in 03/2022 in [place]. Reports that he was given 5 year follow up. Cousin w/ Colon Cancer. Aorta: Smoker, will be due at 67. Lung: Smoker: Due for LDCT, pt defers at this time. Does want to try Wellbutrin for cessation, smoking approx 1 ppd. ASCVD Score: The 10-year ASCVD risk score (Mikki TAMEZ, et al., 2019) is: 27.7% Values used to calculate the score: Age: 58 years Sex: Male Is Non- : No Diabetic: Yes Tobacco smoker: Yes Systolic Blood Pressure: 146 mmHg Is BP treated: Yes HDL Cholesterol: 32 mg/dL Total Cholesterol: 138 mg/dL Depression/Anxiety: Denies depression/anxiety Immunizations: Informed refusal Review of Systems All other systems reviewed and are negative. Objective Blood pressure 146/87, pulse 71, height 1.905 m (6' 3"), weight (!) 141 kg (311 lb). Physical Exam: Vitals reviewed. Constitutional: Appearance: Normal appearance. HENT: Head: Normocephalic and atraumatic. Right Ear: Tympanic membrane normal. Left Ear: Tympanic membrane normal. Nose: Nose normal. Mouth/Throat: Mouth: Mucous membranes are moist. Pharynx: Oropharynx is clear. Eyes: Extraocular Movements: Extraocular movements intact. Pupils: Pupils are equal, round, and reactive to light. Cardiovascular: Rate and Rhythm: Normal rate and regular rhythm. Pulses: Normal pulses. Heart sounds: Normal heart sounds. Pulmonary: Effort: Pulmonary effort is normal. Breath sounds: Normal breath sounds. Abdominal: General: Abdomen is flat. There is no distension. Palpations: Abdomen is soft. There is no mass. Musculoskeletal: General: Normal range of motion. Cervical back: Normal range of motion. No rigidity or tenderness. Right lower leg: No edema. Left lower leg: No edema. Skin: General: Skin is warm. Capillary Refill: Capillary refill takes less than 2 seconds. Neurological: General: No focal deficit present. Mental Status: He is alert and oriented to person, place, and time. Mental status is at baseline. Cranial Nerves: No cranial nerve deficit. Sensory: No sensory deficit. Motor: No weakness. Coordination: Coordination normal. Gait: Gait normal. Deep Tendon Reflexes: Reflexes normal. Psychiatric: Mood and Affect: Mood normal. Assessment & Plan Facial numbness -Imaging in ED negative, but multiple risk factors. Could have still had TIA. Will see Neurology in approx 1 week. Continue Asa and Statin as rx. Will optimize chronic conditions as below. Orders: atorvastatin (Lipitor) 20 MG tablet; Take 1 tablet by mouth at bedtime. Essential (primary) hypertension -BP above goal. Will increase Lisinopril to 40 g every day. Counseled on diet/lifestyle/exercise modifications for optimization. Orders: lisinopril 20 MG tablet; Take 2 tablets by mouth 1 time each day. Goal BP < 130/80 Mixed hyperlipidemia -Will increase Statin 2/2 hx of possible TIA. Counseled on diet/lifestyle/exercise modifications for optimization. Orders: atorvastatin (Lipitor) 20 MG tablet; Take 1 tablet by mouth at bedtime. Lipid Panel w/calculated LDL; Future Gastro-esophageal reflux disease without esophagitis -Continue PPI as rx, use PRN if tolerated.Counseled on diet/lifestyle/exercise modifications for optimization. Orders: omeprazole (PriLOSEC) [address] capsule; Take 1 capsule by mouth 1 time each day. Type 2 diabetes mellitus without complication, without long-term current use of insulin ([facility]) ([facility]) -A1c today above goal. Will start Metformin s/p discussion regarding GLP-1+/- GIP. Counseled on diet/lifestyle/exercise modifications for optimization. Orders: POCT Hemoglobin A1c (INTRFC) metFORMIN XR (Glucophage-XR) 500 MG 24 hr tablet; Take 2 tablets by mouth in the morning and 2 tablets in the evening. Do not crush, chew, or split.. Erectile dysfunction, unspecified erectile dysfunction type -Will consider Sildenafil rx pending course. Discussed Cialis monotherapy in stead, but reports he had tried in the past w/o sig improvement. Benign prostatic hyperplasia, unspecified whether lower urinary tract symptoms present Continue following with Urology as planned. Continue Flomax as rx. Tobacco use -Counseled on use. Need LDCT but will defer at this time. Had CXR in ED and no obvious abnormalities. Orders: buPROPion SR (Wellbutrin SR) 150 MG 12 hr tablet; Take 1 tablet by mouth in the morning and 1 tablet in the evening. Start with 1 tab daily for 3 days and then increase to twice daily. Do not crush, chew, or split.. [facility]2024-09-10 15:44:25Upcoming Encounters Scheduled Orders Name Type Priority Associated Diagnoses Orde r Schedule Lipid Panel w/calculated LDL Lab Routine Mixed hyperlipidemia Expected: 0 11/20/2023 (Approximate), Expires: 11/19/2024 Health Maintenance Due Date Last Done Comments CT Colonography 1967 FIT-DNA 1967 FIT 1967 FOBT 1965 Sigmoidoscopy 1967 Diabetes: Foot Exam 06/03/1977 Diabetes: Retinopathy Screening 06/03/1977 Hepatitis B Vaccines (1 of 3 - 19+ 3-dose series) 06/03/1986 Zoster Vaccines (1 of 2) 06/03/2017 Diabetes: Urine Protein Screening 06/02/2023 06/01/2022, 11/30/2021, 06/01/2021 Influenza Vaccine (#1) 2023 05/22/2018, 2014 Diabetes: Hemoglobin A1C 02/19/2024 024, 06/08/2023, 12/08/2022, Additional history exists Lipid Panel 06/07/2024 06/08/2023, 05/11, 11/30/2021, Additional history exists Colonoscopy 12/05/2027 12/04/2017 Colorectal Cancer Screening 12/05/2027 DTaP/Tdap/Td Vaccines (2 - Td or Tdap) 03/19/2031 03/19/2021 Pneumococcal Vaccine: Pediatrics (0 to 5 Years) and At-Risk Patients (6 to 64 Years) (3 of 3 - PPSV23 or PCV20) 06/03/2032 05/22/2018, 01/07/2015 HIB Vaccines Aged Out No longer eligi ble based on patient's age to complete this topic HPV Vaccines Aged Out No longer eligi ble based on patient's age to complete this topic Hepatitis A Vaccines Aged Out No long er eligible based on patient's age to complete this topic IPV Vaccines Aged Out No longer eligi ble based on patient's age to complete this topic Meningococcal Vaccine Aged Out No darion tommy eligible based on patient's age to complete this topic Rotavirus Vaccines Aged Out No longer eligible based on patient's age to complete this topic [id number] 15:44:25 Diagnosis Facial numbness - Primary Disturbance of skin sensation Essential (primary) hypertension Unspecified essential hypertension Mixed hyperlipidemia Gastro-esophageal reflux dis ease without esophagitis Type 2 diabetes mellitus wit hout complication, without long-term current use of insulin ([facility]) (HCC) Erectile dysfunction, unspec ified erectile dysfunction type Benign prostatic hyperplasia , unspecified whether lower urinary tract symptoms present Tobacco use [id number] 15:44:25 [id number] 21:18:49 Awake, alert oriented X4, respiratory even and unlabored,skin w/d color appropriate for race, moves all ext well, pt encouraged to follow up with pcp and or return as needed Pt given printed and verbal discharge instructions regarding Numbness of arm , patient verbralized understanding and signature obtained, patient denies any other concerns. Advised to seek medical attention for new/prolonged/worsening of symptoms, No adverse reaction to meds given in ER noted upon discharge Pt ambulated to the [facility] with steady gait Sailaja Vizcaino [facility] [id number] 21:09:26 [facility] ED Transfer of Care Note. Off-going Physician:Arline Time of Transfer of Care: 9:09 PM Summary: Dave Deshpande is a 58 year old male presenting with chief complaint of Paresthesias. Pending prior to disposition: Imaging Current interventions: Medications iopamidol (ISOVUE 370-500 mL) injection 100 mL (100 mL Intravenous Given 11/15/232014) Results: Labs Reviewed CBC WITH DIFF - Abnormal; Notable for the following components: Result Value WBC 11.48 (*) LYMPH x1034.54 (*) All other components within normal limits COMP. METABOLIC PANEL (16645) - Abnormal; Notable for the following components: GLUCOSE 202 (*) All other components within normal limits PROTHROMBIN TIME / INR - Abnormal; Notable for the following components: PROTIME PATIENT 13.0 (*) All other components within normal limits TROPONIN I - Normal Narrative: Reference (Normal) Range (defined by the 99th percentile reference limit): <= 0.034 ng/mL Note: Cardiac troponin begins to rise 3-4 hours after the onset of ischemia. Repeat in 4-6 hours if the sample was drawn within 3-4 hours of the onset of the symptom and found normal. Diagnosis of myocardial injury is made with acute changes in cTn concentrations with at least one serial sample above the 99th percentile upper reference limit (URL), taken together with the patient's clinical presentation. Biotin has been reported to cause a negative bias, interpret results relative to patient's use of biotin. N-TERMINAL PRO-BNP - Normal ACTIVATED PARTIAL THRMPLAS OLE - Normal Narrative: The [facility] patient population mean normal value for aPTT is 30 seconds. MAGNESIUM - Normal THYROID STIMULATING HORMONE - Normal CT ANGIOGRAM HEAD Final Result No aneurysm or high-grade stenosis is present in the intracranial or cervical vessels. Mild, diffusely diminished caliber of the right cervical ICA relative to the left, probably developmental. CT ANGIOGRAM NECK Final Result No aneurysm or high-grade stenosis is present in the intracranial or cervical vessels. Mild, diffusely diminished caliber of the right cervical ICA relative to the left, probably developmental. CT HEAD WO CONTRAST Final Result No acute intracranial abnormality. Preliminary Report Dictated by Resident: Nora Lowry I, Willy Moore MD., have reviewed this study and agree with the above report. XR CHEST 1 VW Final Result Impression: 1. No acute cardiopulmonary process is identified. RL: 5767 HS:Y Procedures: Procedures Additional Notes: ED Course as of 11/15/232108 Deysi Nov 15, 20232016 Transfer initiated PPC [DN] ED Course User Index [DN] Abhay Solis MD Diagnosis/Impression as of 11/15/232108 Numbness of arm Medical Decision Making Amount and/or Complexity of Data Reviewed Labs: ordered. Radiology: ordered. Risk Prescription drug management. The patient was endorsed to me by Dr. Zhu. CT of the head neck were negative for any acute process. CT head was negative. I spoke with Dr. Becker at length in regards to the patient. He recommends outpatient follow-up with neurology. The patient was to continue taking his statins and a baby aspirin. Stat referral was placed to Dr. Beckman as an outpatient. The patient was discharged in stable condition. He can return for any questions or concerns. Disposition: Discharged Home Social Determinants of Health: None ED Disposition ED Disposition Disch - Home Condition Stable Comment -- Contact information for follow-up Ervin Avila MD Specialty: PN-NEUROLOGY [facility] [[email or web address]] AND [address] [id number] [facility] STAFFOhio State University [facility] Medical [id number] 19:05:20 Assumed care of patient, received report from LISA Cates. Pt A&OX4, Respiratory even & unlabored. Skin W&D and normal color, no change to IV site, and call nieto in reach, NAD noted at present. Pt denies any concerns at this time. Visitor at bedside. Pt awaiting CT imaging to be performed. Will continue to monitor. Larissa More [facility] [id number] 17:00:41 Patient reports on Sunday for about ten minutes, and today at 11 am for about ten minutes, his left face and left arm felt numb. He called his doctor today about it and they instructed him to come to ER. He also reports intermittent headaches for one month. Hx HTN. Brayden Scott [facility] - [id number] 16:53:00 [facility] Emergency Department Note Patient Name: Dave Deshpande Date of : 1965 58 year old male Treatment [facility]: [facility] Primary Care Physician: PATIENT DOES NOT HAVE A PCP Patient Escorted by: Family [5] Mode of Arrival: Personal means [1] EMS Treatment Prior to ED Arrival: [employer] treatment: None Travel and Exposure Screening: Symptoms Does patient have any of these symptoms?: (not recorded) Exposure Screening Has patient had contact with someone with a communicable disease in the last month?: (not recorded) Diseases exposed to:: (not recorded) Is Patient ?: (not recorded) Exposure Date: (not recorded) Chief Complaint: Chief Complaint Patient presents with • Other Intermittent left arm/face numbness History of Present Illness: Very pleasant gentleman presents for two discrete episodes of left lower face numbness and left arm numbness, assoc w/ mild ROWE. Unsure if any weakness since he didn't try to pick anything up. H/o HTN on Lisinopril. History provided by: Patient and spouse Past Medical History/Immunizations: No past medical history on file. Tetanus received in last 5 years: Unknown Childhood immunizations: Up-to-date Allergies: No Known Allergies Past Social History: Substance & Sexual Activity No substance use or sexual activity history on file. Past Surgical History: No past surgical history on file. Review of Systems: Review of Systems Constitutional: Negative for activity change, appetite change, chills, diaphoresis and fatigue. HENT: Negative for congestion, ear discharge, ear pain, facial swelling, mouth sores, sore throat, trouble swallowing and voice change. Eyes: Negative for photophobia, discharge, redness, itching and visual disturbance. Respiratory: Negative for apnea, cough, choking, chest tightness, shortness of breath, wheezing and stridor. Breasts: Negative for discharge and mass. Cardiovascular: Negative for chest pain, palpitations and leg swelling. Gastrointestinal: Negative for abdominal distention, constipation, diarrhea, nausea and vomiting. Genitourinary: Negative for bladder incontinence, dysuria, frequency, hematuria, flank pain and difficulty urinating. Musculoskeletal: Negative for arthralgias, back pain, gait problem, joint swelling, myalgias, neck pain and neck stiffness. Skin: Negative for color change, pallor, rash and wound. Neurological: Positive for numbness and headaches. Negative for dizziness, syncope, facial asymmetry, speech difficulty, weakness and light-headedness. Psychiatric/Behavioral: Negative for agitation, behavioral problems, confusion and self-injury. Hematological: Negative for adenopathy, cold intolerance and heat intolerance. Does not bruise/bleed easily. Endocrine: Negative for cold intolerance, heat intolerance, polydipsia and polyphagia. Physical Exam: ED Triage Vitals [11/15/23 1702] Weight 137 kg (302 lb) Actual or estimated Height 1.956 m (6' 5") BP (!) 157/86 Pulse 87 Resp 20 Temp 37.1 ?C (98.8 ?F) Temp source Oral SpO2 99 % Measured on Room air Physical Exam Constitutional: General: He is not in acute distress. Appearance: He is well-developed. He is not diaphoretic. HENT: Head: Normocephalic and atraumatic. Right Ear: External ear normal. Left Ear: External ear normal. Mouth/Throat: Pharynx: No oropharyngeal exudate. Eyes: General: No scleral icterus. Right eye: No discharge. Left eye: No discharge. Extraocular Movements: Extraocular movements intact. Conjunctiva/sclera: Conjunctivae normal. Pupils: Pupils are equal, round, and reactive to light. Neck: Thyroid: No thyromegaly. Vascular: No carotid bruit. Trachea: No tracheal deviation. Cardiovascular: Rate and Rhythm: Normal rate and regular rhythm. Heart sounds: Normal heart sounds. Pulmonary: Effort: Pulmonary effort is normal. No respiratory distress. Abdominal: General: There is no distension. Tenderness: There is no abdominal tenderness. Musculoskeletal: General: No tenderness or deformity. Normal range of motion. Cervical back: Normal range of motion and neck supple. No rigidity or tenderness. Lymphadenopathy: Cervical: No cervical adenopathy. Skin: General: Skin is warm and dry. Coloration: Skin is not pale. Findings: No erythema or rash. Neurological: General: No focal deficit present. Mental Status: He is alert and oriented to person, place, and time. Mental status is at baseline. Cranial Nerves: No cranial nerve deficit. Sensory: No sensory deficit. Motor: No weakness or abnormal muscle tone. Coordination: Coordination normal. Psychiatric: Behavior: Behavior normal. Thought Content: Thought content normal. Judgment: Judgment normal. Radiology: XR CHEST 1 VW Final Result Study: Single view chest. Ordering Physician: NERI PEREIRA Date: 11/15/2023 5:15 PM History:malaise COMPARISON: None. Findings: Single frontal view chest demonstrates a normal heart size. The lungs are clear without infiltrate, pleural effusion or pneumothorax. No acute osseous abnormality is identified. IMPRESSION Impression: 1. No acute cardiopulmonary process is identified. RL: 5767 HS:Y Lab Results: Lab Results CBC WITH DIFF - Abnormal Result Value Ref Range WBC 11.48 (*) 4.20 - 10.70 10*3/?L RBC 4.77 4.26 - 5.52 10*6/?L HGB 14.0 12.2 - 16.4 g/dL HCT 42.0 38.4 - 49.3 % MCV 88.1 81.7 - 95.6 fL MCH 29.4 26.1 - 32.7 pg MCHC 33.3 31.2 - 35.0 g/dL RDW-SD 42.3 38.5 - 51.6 fL RDW-CV 13.1 12.1 - 15.4 % PLT 183 150 - 328 10*3/?L MPV 11.9 9.8 - 13.0 fL NRBC/100 WBC 0.0 0.0 - 10.0 /100 WBCs NRBC x103<0.01 10*3/?L GRAN MAT (NEUT) % 52.0 % IMM GRAN % 0.40 % LYMPH % 39.5 % MONO % 5.1 % EOS % 2.5 % BASO % 0.5 % GRAN MAT x103(ANC) 5.95 1.99 - 6.95 10*3/uL IMM GRAN x1030.05 0.00 - 0.06 10*3/uL LYMPH x1034.54 (*) 1.09 - 3.23 10*3/uL MONO x1030.59 0.36 - 1.02 10*3/uL EOS x1030.29 0.06 - 0.53 10*3/uL BASO x1030.06 0.01 - 0.09 10*3/uL COMP. METABOLIC PANEL (20602) - Abnormal NA 139 135 - 145 mmol/L K 3.6 3.5 - 5.0 mmol/L CL 100 98 - 108 mmol/L CO2 TOTAL 29 23 - 31 mmol/L AGAP 10 2 - 16 BUN 13 7 - 23 mg/dL GLUCOSE 202 (*) 70 - 110 mg/dL CREATININE 0.90 0.60 - 1.25 mg/dL TOTAL BILI 0.7 0.1 - 1.1 mg/dL CALCIUM 9.4 8.6 - 10.6 mg/dL T PROTEIN 7.4 6.3 - 8.2 g/dL ALBUMIN 4.4 3.5 - 5.0 g/dL ALK PHOS 70 34 - 122 U/L ALTv 18 5 - 50 U/L AST(SGOT) 24 13 - 40 U/L eGFR 100.2 mL/min/1.73m2 PROTHROMBIN TIME / INR - Abnormal PROTIME PATIENT 13.0 (*) 10.1 - 12.6 Seconds INR 1.1 TROPONIN I - Normal TROPONIN I 0.003 <=0.034 ng/mL N-TERMINAL PRO-BNP - Normal NT-proBNP <20 <=125 pg/mL ACTIVATED PARTIAL THRMPLAS OLE - Normal APTT Patient 32 26 - 36 Seconds MAGNESIUM - Normal MAGNESIUM 1.7 1.7 - 2.4 mg/dL THYROID STIMULATING HORMONE EKG: If EKG completed, see Procedure Note. Orders and Treatments: Orders Placed This Encounter Procedures • XR CHEST 1 VW • CT HEAD WO CONTRAST • CT ANGIOGRAM HEAD • CT ANGIOGRAM NECK • Cbc with Diff • Comp. Metabolic Panel (96869) • Troponin I • N-Terminal Pro-Bnp • Prothrombin Time / INR • Activated Partial Thrmplas Ole • Magnesium • Thyroid Stimulating Hormone No orders of the defined types were placed in this encounter. First Provider Eval: ED Events Date/Time Event User Comments 11/15/23 1701 Medical Screening Begins NERI PEREIRA MD -- 11/15/23 170 First Provider Evaluation NERI PEREIRA MD -- ED COURSE ED Course as of 11/15/232016 [facility] Nov 15, 20232016 Transfer initiated PPC [DN] ED Course User Index [DN] Abhay Solis MD Diagnosis/Impression as of 11/15/232016 Numbness of arm Procedures: Procedures MDM: Medical Decision Making DDx incl TIA, CVA, complex migraine, atypical sz, ICH, IC tumor, et al NIH = 0 Amount and/or Complexity of Data Reviewed Labs: ordered. Radiology: ordered. Flowsheet Documentation: Disposition/Condition: ED Disposition None Signed out to next shift pending CT's and likely OBS for TIA w/u Discharge Medications: Patient's Medications START taking these medications No medications on file CONTINUE taking these medications which have NOT CHANGED CYCLOBENZAPRINE (FLEXERIL) 5 MG TABLET Take 1 tablet by mouth 3 (three) times daily. PENTAZOCINE-NALOXONE (TALWIN NX) 50-0.5 MG TABLET Take 1 tablet by mouth every 4 (four) hours as needed for Pain for up to 20 doses. START taking Modified Medications as Prescribed No medications on file STOP taking these medications No medications on file Follow-up: Electronically signed by: Neri Pereira MD 11/15/231851 Neri Pereira MD 11/15/23 1901 T [facility] [id number] 16:15:08 Please advise [facility]2024-09-05 11:04:34 Patient called needing to get a call back states his left side of the face and left arm have been getting numb twice in a three day spam. Informed him to go to the ER but wants Dr. Mathews to call him to see what he needs to do or why its happening. [facility]
[2024-07-04] MEDS ORDERED: NA CHLORIDE 0.9% 1,000 ML ONE ×2 (16:42→18:24)
[2024-07-04 16:46] LABS: Absolute Basophils 0.2 K/uL (0-0.5); Absolute Eosinophils 0.4 K/uL (0-0.5); Absolute Lymphocytes (CBC) 4.1 K/uL (0.7-4.9); Absolute Monocytes 1.1 K/uL (0.1-1.3); Basophils % 0.9 % (0-1.3); Eosinophils % 2.2 % (0-4.4); Hematocrit 39.7 % (39.6-49.0); Hemoglobin 13.5 g/dL (13.6-17.9); MCH 28.6 pg (27.0-35.0); MCV 84.1 fL (80-100); MPV 9.7 fL (7.6-11.3); Monocytes % 6.4 % (3.3-12.3); Neutrophils % 67.5 % (41.7-73.7); Platelets 190 thou/uL (152-406); RBC Red Blood Cell Count 4.72 M/uL (4.33-5.43); Red Cell Distribution Width 13.9 % (12.1-15.2)
[2024-07-04 16:51] LABS: Protime INR 1.15
[2024-07-04] MEDS ORDERED: ONDANSETRON 4 MG/2 ML VIAL ONE (17:04)
[2024-07-04] MEDS ORDERED: PIPERACIL/TAZO 3.375 GM VIAL IV ONE (17:04)
[2024-07-04] MEDS ORDERED: MORPHINE 4 MG/ML SYR ONE ×2 (17:04→18:25)
[2024-07-04] MEDS ORDERED: NA CHLORIDE 0.9% 100 ML ONE (17:05)
[2024-07-04 17:07] LABS: ALT/SGPT 20 U/L (16-61); AST/SGOT < 10 U/L (15-37); Albumin 3.6 g/dL (3.4-5.0); Albumin/Globulin Ratio 0.9 (1.1-1.8); Alkaline Phosphatase 103 U/L (45-117); Anion Gap 9.8 mEq/L (5.0-15.0); BUN Blood Urea Nitrogen 14 mg/dL (7-18); Bicarbonate 27 mEq/L (21-32); Bilirubin Direct < 0.2 mg/dL (0-0.2); Bilirubin Indirect, Calculated 0.1 mg/dL (0.2-0.8); Bilirubin Total 0.3 mg/dL (0.2-1.0); Globulin 4.1 g/dL (2.3-3.5); Glomerular Filtration Rate 101 ml/min (=/>90); Glucose Level 121 mg/dL (74-106); Lipase 31 U/L (13-75); NT PRO-BNP 32 pg/mL (<125); Potassium 3.8 mEq/L (3.5-5.1); Protein, Total 7.7 g/dL (6.4-8.2); Sodium Level 138 mEq/L (136-145); Troponin High Sensitivity 4.8 pg/mL (<58.9)
--- NOTE | 2024-07-04 17:34 | RAD REPORT ---
EXAMINATION: ONE VIEW CHEST XR CLINICAL INDICATION: Male, 59 years old.,PAIN TECHNIQUE: Frontal chest projection is submitted. Examination is limited by patient positioning and t echnique. COMPARISON: No prior exam. FINDINGS: The lungs are well inflated and clear. No pneumothorax or sizable effusion. The heart is normal in s ize. Mediastinal contours are unremarkable. IMPRESSION: No acute intrathoracic abnormalities.
--- NOTE | 2024-07-04 17:35 | EDPHYS ---
Physician Documentation [facility] Name: Dave Hall Age: 59 yrs Sex: Male : 1965 Arrival Date: 07/04/2024 Time: 15:36 Bed 7 Private MD: ED Physician Manny Arce HPI: 07/04 16:56 This 59 yrs old Male presents to ER via Ambulatory with complaints of Urinary latosha Problem, Rectal Pain - boil, Abdominal Pain. 16:56 The patient presents to the emergency department with pain in the rectal area, that is latosha moderate, that is severe. Onset: The symptoms/episode began/occurred 5 day(s) ago. Context: the patient has no known special context relating to the rectal area complaint(s). Modifying factors: The symptoms are alleviated by. Associate signs and symptoms: The patient has no apparent associated signs or symptoms. The patient has not experienced similar symptoms in the past. Historical: - Allergies: 15:54 No Known Allergies; ld1 - Home Meds: 15:54 metformin 500 mg Oral tablet 2 tabs daily [Active]; ld1 - PMHx: 15:54 Hypertensive disorder; Diabetes mellitus; ld1 - PSHx: 15:54 Neck; Rectal boil; ld1 - Immunization history:: Adult Immunizations up to date. - Infectious Disease History:: Denies. - Social history:: Smoking status: Patient reports the use of cigarette tobacco products, smokes one pack cigarettes per day. Patient/guardian denies using alcohol. - Family history:: not pertinent. ROS: 16:56 Constitutional: Negative for fever, chills, and weight loss, Eyes: Negative for injury, latosha pain, redness, and discharge, ENT: Negative for injury, pain, and discharge, Neck: Negative for injury, pain, and swelling, Cardiovascular: Negative for chest pain, palpitations, and edema, Respiratory: Negative for shortness of breath, cough, wheezing, and pleuritic chest pain, Back: Negative for injury and pain, : Negative for injury, bleeding, discharge, and swelling, MS/Extremity: Negative for injury and deformity, Skin: Negative for injury, rash, and discoloration, Neuro: Negative for headache, weakness, numbness, tingling, and seizure, Psych: Negative for depression, anxiety, suicide ideation, homicidal ideation, and hallucinations, Allergy/Immunology: Negative for hives, rash, and allergies, Endocrine: Negative for neck swelling, polydipsia, polyuria, polyphagia, and marked weight changes, Hematologic/Lymphatic: Negative for swollen nodes, abnormal bleeding, and unusual bruising, 16:56 Abdomen/GI: Positive for abdominal pain, nausea, abdominal cramps, abdominal distension, rectal pain, Exam: 16:56 Constitutional: This is a well developed, well nourished patient who is awake, alert, latosha and in no acute distress. Head/Face: Normocephalic, atraumatic. Eyes: Pupils equal round and reactive to light, extra-ocular motions intact. Lids and lashes normal. Conjunctiva and sclera are non-icteric and not injected. Cornea within normal limits. Periorbital areas with no swelling, redness, or edema. ENT: Nares patent. No nasal discharge, no septal abnormalities noted. Tympanic membranes are normal and external auditory canals are clear. Oropharynx with no redness, swelling, or masses, exudates, or evidence of obstruction, uvula midline. Mucous membranes moist. Neck: Trachea midline, no thyromegaly or masses palpated, and no cervical lymphadenopathy. Supple, full range of motion without nuchal rigidity, or vertebral point tenderness. No Meningismus. Chest/axilla: Normal chest wall appearance and motion. Nontender with no deformity. No lesions are appreciated. Cardiovascular: Regular rate and rhythm with a normal S1 and S2. No gallops, murmurs, or rubs. Normal PMI, no JVD. No pulse deficits. Respiratory: Lungs have equal breath sounds bilaterally, clear to auscultation and percussion. No rales, rhonchi or wheezes noted. No increased work of breathing, no retractions or nasal flaring. Back: No spinal tenderness. No costovertebral tenderness. Full range of motion. Male : Normal genitalia with no discharge or lesions. Skin: Warm, dry with normal turgor. Normal color with no rashes, no lesions, and no evidence of cellulitis. MS/ Extremity: Pulses equal, no cyanosis. Neurovascular intact. Full, normal range of motion., bilateral aka Neuro: Awake and alert, GCS 15, oriented to person, place, time, and situation. Cranial nerves II-XII grossly intact. Motor strength 5/5 in all extremities. Sensory grossly intact. Cerebellar exam normal. Normal gait. Psych: Awake, alert, with orientation to person, place and time. Behavior, mood, and affect are within normal limits. 16:56 ECG was reviewed by the Attending Physician. 16:56 Abdomen/GI: Inspection: distension, that is moderate, Bowel sounds: normal, Rectal exam: swelling, tenderness, that is moderate, that is severe, Liver: no appreciated palpable abnormalities, Hernia: not appreciated, Vital Signs: 15:52 BP 184 / 102; Pulse 98; Resp 18; Temp 98.3(TE); Pulse Ox 98% on R/A; Weight 132.9 kg; ld1 Height 6 ft. 5 in. ; Pain 8/10; 16:55 BP 171 / 95; Pulse 87; Resp 15; Pulse Ox 99% ; jl7 18:44 BP 168 / 80; Pulse 86; Resp 15; Pulse Ox 98% on R/A; hb 19:29 BP 157 / 80; Pulse 81; Resp 18 S; Pulse Ox 99% on R/A; ha1 15:52 Body Mass Index 34.74 (132.90 kg, 195.58 cm) ld1 15:52 Pain Scale: Adult ld1 MDM: 15:57 Medical Screening Exam initiated latosha 16:59 Differential diagnosis: hemorrhoids, fissure, abscess. Data reviewed: vital signs, [facility] nurses notes, lab test result(s), EKG, radiologic studies, CT scan, plain films. Consideration of Admission/Observation Patient was admitted/placed on observation. Escalation of care including admission/observation considered. I considered the following discharge prescriptions or medication management in the emergency department Medications were administered in the Emergency Department. See MAR. Independent interpretation of the following test(s) in the Emergency Department EKG: See my EKG interpretation above. Care significantly affected by the following chronic conditions: Diabetes, Hypertension, Obesity, tobacco abuse. 07/04 16:01 Order name: Basic Metabolic Panel; Complete Time: 17: [facility] 07/04 16:01 Order name: CBC with Diff; Complete Time: 17: [facility] 07/04 16: Order name: LFT's; Complete Time: 17:26 [facility] 07/04 16:01 Order name: Magnesium; Complete Time: 17: [facility] 07/04 16:01 Order name: NT PRO-BNP; Complete Time: 17: [facility] 07/04 16:01 Order name: PT-INR; Complete Time: 17:26 [facility] 07/04 16:01 Order name: Troponin HS; Complete Time: 17:26 [facility] 07/04 16:01 Order name: Lipase; Complete Time: 17:26 [facility] 07/04 16:01 Order name: Urinalysis w/ reflexes [facility] 07/04 19:05 Order name: Lactate w/ 2H reflex if indic. [facility] 07/04 19:05 Order name: Magnesium [facility] 07/04 19:05 Order name: Phosphorus [facility] 07/04 19:05 Order name: CBC with Automated Diff [facility] 07/04 19:05 Order name: CBC with Automated Diff [facility] 07/04 19:05 Order name: Comprehensive Metabolic Panel [facility] 07/04 19:05 Order name: Comprehensive Metabolic Panel [facility] 07/04 19:10 Order name: Hemoglobin A1c [facility] 07/04 19:33 Order name: Blood Culture Adult (2) ha1 07/04 16:01 Order name: XRAY Chest (1 view); Complete Time: 17:36 [facility] 07/04 16:01 Order name: CT Abd/Pelvis - IV Contrast Only [facility] 07/04 16:01 Order name: Cardiac monitoring; Complete Time: 16:55 [facility] 07/04 16:01 Order name: EKG - Nurse/Tech; Complete Time: 16:55 [facility] 07/04 16:01 Order name: IV Saline Lock; Complete Time: 16:55 [facility] 07/04 16:01 Order name: Labs collected and sent; Complete Time: 16:41 [facility] 07/04 16:01 Order name: O2 Per Protocol; Complete Time: 16:41 [facility] 07/04 16:01 Order name: O2 Sat Monitoring; Complete Time: 16:41 [facility] 07/04 17:44 Order name: Matthew; Complete Time: 18:04 [facility] 07/04 17:44 Order name: Matthew Leg Bag; Complete Time: 18:04 [facility] EC:56 Rate is 88 beats/min. Rhythm is regular. QRS [place] is Normal. [place] interval is normal. QRS latosha interval is normal. QT interval is normal. No Q waves. T waves are Normal. No ST changes noted. Clinical impression: Normal ECG and No evidence of ischemia. Interpreted by me. Reviewed by me. Administered Medications: 16:55 Drug: NS 0.9% IV 1000 ml IV at 1000 ml once; to be given as a bolus over 60 minutes jl7 Route: IV; Rate: 1000 ml; Site: right antecubital; 20:10 Follow up: Response: No adverse reaction; IV Status: Completed infusion ha1 17:36 Drug: Piperacillin-Tazobactam IVPB 3.375 grams IVPB once over 60 mins; (mix in NS 100 jl7 mL) Route: IVPB; Infused Over: 60 mins; Site: right antecubital; 19:00 Follow up: Response: No adverse reaction; IV Status: Completed infusion ha1 17:36 Drug: morphine IVP or IV 4 mg IVP once over 4 mins Route: IVP; Infused Over: 4 mins; jl7 Site: right antecubital; 19:00 Follow up: Response: No adverse reaction; Marked relief of symptoms ha1 17:36 Drug: Ondansetron IVP 4 mg IVP once; over 2 minutes Route: IVP; Site: right antecubital;jl7 19:10 Follow up: Response: No adverse reaction ha1 17:55 Drug: Viscous Lidocaine Mucous Membrane Liquid (4 %) 5 ml Mucous Membrane once Route: jl7 Mucous Membrane; 18:40 Drug: Banana Bag - (Multivitamin IV 1 amp, NS 0.9% IV 1000 ml, Thiamine IV 100 mg, jl7 foLIC Acid IVPB 1 mg) IV at 500 ml/hr once Route: IV; Rate: 500 ml/hr; Site: right antecubital; 20:08 Follow up: Response: No adverse reaction; IV Status: Infusion continued upon admission ha1 18:40 Drug: morphine IVP or IV 4 mg IVP once over 4 mins Route: IVP; Infused Over: 4 mins; jl7 Site: right antecubital; 19:10 Follow up: Response: No adverse reaction; Pain is decreased; RASS: Alert and Calm (0) ha1 18:40 Drug: Flomax PO 0.4 mg PO once Route: PO; jl7 19:10 Follow up: Response: No adverse reaction ha1 Disposition Summary: 07/04/24 17:35 Hospitalization Ordered Notes: Hospitalization Status: Inpatient Admission latosha Provider: Prince latosha Mike Location: Telemetry/MedSurg (Inpatient) latosha Condition: Fair latosha Problem: new latosha Symptoms: have improved latosha Bed/Room Type: Standard latosha Room Assignment: 206(07/04/24 19:10) rv1 Diagnosis - Abdominal pain, Generalized latosha - Anorectal abscess latosha - Obesity, unspecified latosha - Tobacco abuse counseling latosha - Tobacco use latosha - Elevated white blood cell count latosha - Retention of urine, unspecified - 900 cc latosha Forms: - Medication Reconciliation Form latosha - SBAR form latosha - Leadership Thank You Letter latosha Signatures: Dispatcher [employer] EDManny Grady MD MD cha Leal, Jahala RN RN jl7 Laurie Flores RN RN ld1 Tiff Azevedo rv1 Fern Stevenson RN ha1 Corrections: (The following items were deleted from the chart) 16:02 16:02 Abdomen Pelvis W Con+CT.RAD.BRZ ordered. EDNV EDMS 19:10 17:35 latosha rv1
--- NOTE | 2024-07-04 17:35 | ER ---
Nurse's Notes [facility] Name: Dave Hall Age: 59 yrs Sex: Male : 1965 Arrival Date: 07/04/2024 Time: 15:36 Bed 7 Private MD: Diagnosis: Abdominal pain, Generalized;Anorectal abscess;Obesity, unspecified;Tobacco abuse counseling;Tobacco use;Elevated white blood cell count;Retention of urine, unspecified-900 cc Presentation: 07/04 15:51 Chief complaint: Chief complaint: Patient states: Sent here by Dr. Ke asher to ld1 rectum. Unable to urinateX 2 days. Abdominal pain. 15:52 Coronavirus screen: At this time, the client does not indicate any symptoms associated ld1 with coronavirus-19. Ebola Screen: No symptoms or risks identified at this time. Initial Sepsis Screen: Does the patient meet any 2 criteria? No. Patient's initial sepsis screen is negative. Does the patient have a suspected source of infection? No. Patient's initial sepsis screen is negative. Risk Assessment: Do you want to hurt yourself or someone else? Patient reports no desire to harm self or others. Onset of symptoms was July 04, 2024. 15:52 Method Of Arrival: Ambulatory ld1 15:52 Acuity: SANDRA 2 ld1 Triage Assessment: 15:52 Pain:. ld1 15:54 General: Appears in no apparent distress. uncomfortable, Behavior is calm, cooperative, ld1 appropriate for age. 15:56 EENT: No signs and/or symptoms were reported regarding the EENT system. Neuro: Level of ld1 Consciousness is awake, alert, obeys commands, Oriented to person, place, time, situation. Cardiovascular: Capillary refill < 3 seconds Patient's skin is warm and dry. Respiratory: Airway is patent Respiratory effort is even, unlabored. GI: Abdomen is round Reports lower abdominal pain, upper abdominal pain. : Reports inability to void, since 2 days. Derm: No signs and/or symptoms reported regarding the dermatologic system. Musculoskeletal: No signs and/or symptoms reported regarding the musculoskeletal system. Historical: - Allergies: 15:54 No Known Allergies; ld1 - Home Meds: 15:54 metformin 500 mg Oral tablet 2 tabs daily [Active]; ld1 - PMHx: 15:54 Hypertensive disorder; Diabetes mellitus; ld1 - PSHx: 15:54 Neck; Rectal boil; ld1 - Immunization history:: Adult Immunizations up to date. - Infectious Disease History:: Denies. - Social history:: Smoking status: Patient reports the use of cigarette tobacco products, smokes one pack cigarettes per day. Patient/guardian denies using alcohol. - Family history:: not pertinent. Screenin:30 [facility] ED Fall Risk Assessment (Adult) History of falling in the last 3 months, hb including since admission No falls in past 3 months (0 pts) Confusion or Disorientation No (0 pts) Intoxicated or Sedated No (0 pts) Impaired Gait No (0 pts) Mobility Assist Device Used No (0 pt) Altered Elimination No (0 pt) Score/Fall Risk Level 0 - 2 = Low Risk Oriented to surroundings, Maintained a safe environment, Educated pt \T\ family on fall prevention, incl call for assistance when getting out of bed. Abuse screen: Denies threats or abuse. Denies injuries from another. Nutritional screening: No deficits noted. Tuberculosis screening: No symptoms or risk factors identified. Assessment: 17:45 General: Appears in no apparent distress. Behavior is calm, cooperative. Pain: Pain hb currently is 8 out of 10 on a pain scale. Neuro: Level of Consciousness is awake, alert, obeys commands, Oriented to person, place, time, situation. Cardiovascular: Patient's skin is warm and dry. Respiratory: Respiratory effort is even, unlabored, Respiratory pattern is regular, symmetrical. GI: Reports perirectal pain, suprapubic pain. 18:43 Reassessment: Patient appears in no apparent distress at this time. Patient and/or hb family updated on plan of care and expected duration. Pain level reassessed. Patient is alert, oriented x 3, equal unlabored respirations, skin warm/dry/pink. 19:28 Reassessment: Patient and/or family updated on plan of care and expected duration. Pain ha1 level reassessed. Patient is alert, oriented x 3, equal unlabored respirations, skin warm/dry/pink. pain 3/10 Patient states feeling better. Patient states symptoms have improved. Vital Signs: 15:52 BP 184 / 102; Pulse 98; Resp 18; Temp 98.3(TE); Pulse Ox 98% on R/A; Weight 132.9 kg; ld1 Height 6 ft. 5 in. ; Pain 8/10; 16:55 BP 171 / 95; Pulse 87; Resp 15; Pulse Ox 99% ; jl7 18:44 BP 168 / 80; Pulse 86; Resp 15; Pulse Ox 98% on R/A; hb 19:29 BP 157 / 80; Pulse 81; Resp 18 S; Pulse Ox 99% on R/A; ha1 15:52 Body Mass Index 34.74 (132.90 kg, 195.58 cm) ld1 15:52 Pain Scale: Adult ld1 ED Course: 15:37 Patient arrived in ED. im 15:54 Triage completed. ld1 15:56 Manny Arce MD is Attending Physician. latosha 15:56 Arm band placed on right wrist. ld1 16:14 Jerry Jamison, LISA is Primary Nurse. jl7 16:16 XRAY Chest (1 view) In Process Unspecified. EDMS 16:41 Initial lab(s) drawn, by mt, sent to lab. Inserted saline lock: 20 gauge in right jl7 antecubital area, using aseptic technique. Blood collected. Flushed with 10 mL NS. 17:19 CT Abd/Pelvis - IV Contrast Only In Process Unspecified. EDMS 17:33 Prince Mike MD is Hospitalizing Provider. [facility] 18:03 Bladder scan completed. 1200 mL. Matthew cath inserted, using sterile technique, 16 Fr., jl7 by mt, balloon inflated, to gravity drainage, urine specimen collected. returned clear yellow urine. Patient tolerated well. 18:45 Patient has correct armband on for positive identification. Bed in low position. Call light in reach. Provided Education on: POC. 20:08 Patient admitted, IV remains in place. ha1 20:53 No provider procedures requiring assistance completed. ha1 Administered Medications: 16:55 Drug: NS 0.9% IV 1000 ml IV at 1000 ml once; to be given as a bolus over 60 minutes jl7 Route: IV; Rate: 1000 ml; Site: right antecubital; 20:10 Follow up: Response: No adverse reaction; IV Status: Completed infusion ha1 17:36 Drug: Piperacillin-Tazobactam IVPB 3.375 grams IVPB once over 60 mins; (mix in NS 100 jl7 mL) Route: IVPB; Infused Over: 60 mins; Site: right antecubital; 19:00 Follow up: Response: No adverse reaction; IV Status: Completed infusion ha1 17:36 Drug: morphine IVP or IV 4 mg IVP once over 4 mins Route: IVP; Infused Over: 4 mins; jl7 Site: right antecubital; 19:00 Follow up: Response: No adverse reaction; Marked relief of symptoms ha1 17:36 Drug: Ondansetron IVP 4 mg IVP once; over 2 minutes Route: IVP; Site: right antecubital;jl7 19:10 Follow up: Response: No adverse reaction ha1 17:55 Drug: Viscous Lidocaine Mucous Membrane Liquid (4 %) 5 ml Mucous Membrane once Route: jl7 Mucous Membrane; 18:40 Drug: Banana Bag - (Multivitamin IV 1 amp, NS 0.9% IV 1000 ml, Thiamine IV 100 mg, jl7 foLIC Acid IVPB 1 mg) IV at 500 ml/hr once Route: IV; Rate: 500 ml/hr; Site: right antecubital; 20:08 Follow up: Response: No adverse reaction; IV Status: Infusion continued upon admission ha1 18:40 Drug: morphine IVP or IV 4 mg IVP once over 4 mins Route: IVP; Infused Over: 4 mins; jl7 Site: right antecubital; 19:10 Follow up: Response: No adverse reaction; Pain is decreased; RASS: Alert and Calm (0) ha1 18:40 Drug: Flomax PO 0.4 mg PO once Route: PO; jl7 19:10 Follow up: Response: No adverse reaction [facility] Medication: 18:45 VIS not applicable for this client. Outcome: 17:35 Decision to Hospitalize by Provider. latosha 20:53 Admitted to Med/surg accompanied by nurse, room 206, with chart, [facility] 20:53 Condition: stable 20:53 Instructed on the need for admit, Demonstrated understanding of instructions, 20:54 Patient left the ED. 1 Signatures: Dispatcher [employer] EDPR Manny Arce MD MD cha Baxter, Heather RN RN Jerry Jamiosn RN RN jl7 Laurie Flores RN RN ld1 Fern Stevenson RN RN [facility] Sabina Wood Corrections: (The following items were deleted from the chart) 15:54 15:51 Chief complaint: ld1 ld1 15:55 15:52 Pulse 98bpm; Resp 18bpm; Pulse Ox 98% RA; Temp 98.3F Temporal; 132.9 kg; Height 6 ld1 ft. 5 in.; BMI: 34.7; Pain 8, Adult; ld1 15:57 15:51 Chief complaint: Patient states: Sent here by Dr. Ke asher to rectum. ld1 Unable to urinate/BM. Abdominal pain Chief complaint: Patient states: Sent here by Dr. Ke asher to rectum. Unable to urinate/BM. Abdominal pain ld1
[2024-07-04] MEDS ORDERED: LIDOCAINE HCL JELLY 2% 6 ML SYRINGE TOP ONE (17:44)
--- NOTE | 2024-07-04 17:46 | RAD REPORT ---
EXAMINATION: CT Abdomen Pelvis W Contrast CLINICAL INDICATION: Male, 59 years old. ABD PAIN TECHNIQUE: CT abdomen and pelvis was performed, after the administration of IV contrast, as per depar tment protocol. Axial, sagittal and coronal reconstructions were obtained. One or more of the following dose reduction techniques were used: Automated exposure control, adjustment of the mA and k V according to patient size, and iterative reconstruction. Unless otherwise specified, incidental findings do not require dedicated imaging follow-up. COMPARISON: No prior exam. FINDINGS: LOWER CHEST: The visualized lung bases are clear. LIVER: Normal in size and contour. No focal lesion. BILIARY SYSTEM: Gallbladder is partially decompressed limiting evaluation. No suspicious abnormalitie s. SPLEEN: Normal size. No focal lesion. PANCREAS: No mass, ductal dilation, or adilene-pancreatic fluid. ADRENALS: Normal; no mass. KIDNEYS: Normal size and contour. No hydronephrosis. URINARY BLADDER: Unremarkable. GASTROINTESTINAL TRACT: No evidence of free air, significant intra-abdominal free fluid, bowel obstru ction or abscess. APPENDIX: Normal appendix. LYMPH NODES: No lymphadenopathy. MUSCULOSKELETAL: No acute or suspicious osseous abnormality. ADDITIONAL FINDINGS: Perirectal fluid collection along the right posterior circumference of the lower rectum/upper inner canal, measuring 2.7 x 3.1 cm in greatest axial dimensions, and 2.5 cm in craniocaudal extent. Surrounding fat stranding along the right posterior pelvic floor, extending sarkis g the presacral space. IMPRESSION: Right perirectal/upper anal canal fluid collection measuring up to 3.1 cm with adjacent inflammatory changes, concerning for an abscess formation.
[2024-07-04 18:19] LABS: Specific Gravity 1.027 (1.005-1.030); Sqamous Epithelial None Seen /HPF (None Seen); Urine Bacteria None Seen /HPF (<20); Urine Bilirubin NEGATIVE (Negative); Urine Blood Negative (Negative); Urine Clarity Clear (Clear); Urine Color Light-Yellow (Yellow); Urine Culture Reflex Order NOT NEEDED; Urine Glucose 3+ (Negative); Urine Ketones NEGATIVE (Negative); Urine Microscopic Reflex YN ORDER UMIC; Urine Mucus Slight /HPF (None Seen); Urine Nitrite NEGATIVE (Negative); Urine Protein NEGATIVE (Negative); Urine RBC <5 /HPF (None Seen); Urine Urobilinogen Normal (Normal); Urine WBC None Seen /HPF (<5)
[2024-07-04] MEDS ORDERED: THIAMINE 200 MG/2 ML INJ ONE (18:23)
[2024-07-04] MEDS ORDERED: FOLIC ACID 5 MG/ML VIAL ONE (18:24)
[2024-07-04] MEDS ORDERED: TAMSULOSIN 0.4 MG SR CAP ONE (18:25)
[2024-07-04] MEDS ORDERED: MULTIVITAMINS 10 ML VIAL (INJ) IV ONE (18:34)
[2024-07-04] MEDS ORDERED: ACETAMINOPHEN 500 MG TAB PO PRN (19:00)
[2024-07-04] MEDS ORDERED: ONDANSETRON 4 MG/2 ML VIAL IV PRN (19:00)
--- NOTE | 2024-07-04 19:08 | P.HP ---
Certification for Inpatient Patient admitted to: Observation With expected LOS: <2 Midnights Practitioner: I am a practitioner with admitting privileges, knowledge of patient current condition, hospital course, and medical plan of care. Services: Services provided to patient in accordance with Admission requirements found in Title 42 Section 412.3 of the Code of Federal Regulations Patient History Date of Service: 07/04/24 Reason for admission: Perirectal abscess History of Present Illness: Patient is a 59-year-old male with a past medical history of morbid obesity and type 2 diabetes mellitus. He has lost a significant amount of weight after engaging lower carb diet. He presents with a perirectal abscess. He has a history of perirectal abscess that occurred 30 years ago. He has been stable since. Over the past 3 days, he has noted increasing amount of pain in the rectal area. Associated symptoms include chills which occurred the day before presentation. He denies any evidence of drainage. CT abdomen pelvis revealed a 3.1 cm perirectal abscess. He is being admitted for I&D by general surgery. Dr. Hernandez consulted. Of note, patient has also developed a urinary retention. He has been unable to evacuate his bladder even with increased intra-abdominal pressure. He is only seeing dribbling. He now has a Matthew catheter which yielded a liter upon placement. Physical Examination - Physical Exam General: Acute distress, Obese HEENT: Atraumatic, Normocephalic Cardiovascular: No edema, Normal pulses, Regular rate/rhythm, Normal S1 S2, Systolic murmur Neurological: Normal speech - Studies Laboratory Data (last 24 hrs) 07/04/24 07/04/24 07/04/24 16:37 16:37 16:37 WBC 17.70 H Hgb 13.5 L Hct 39.7 Plt Count 190 PT 13.0 INR 1.15 Sodium 138 Potassium 3.8 BUN 14 Creatinine 0.87 Glucose 121 H Magnesium 2.0 Total Bilirubin 0.3 AST < 10 L ALT 20 Alkaline Phosphatase 103 Lipase 31 Assessment and Plan - Problems (Diagnosis) (1) Perirectal abscess Current Visit: Yes Status: Acute (2) Type 2 diabetes mellitus Current Visit: Yes Status: Acute (3) Obesity Current Visit: Yes Status: Acute - Plan Assessment This is a 59-year-old male who is being admitted for perirectal abscess. First occurrence was 30 years ago and has been stable since. CT abdomen pelvis revealed a 3.1 cm perirectal abscess. Patient had WBC of 17,000 on admission. Perirectal abscess Urinary retention Type 2 diabetes mellitus Obesity Plan: Will admit under observation telemetry IV fluid infusion Will start patient on scheduled Zosyn Multimodal pain regimen General Surgery consulted N.p.o. after midnight Will also benefit from urology consult for urinary retention Resume rest of home medication upon reconciliation - Advance Directives Does patient have a Living Will: No Does patient have a Durable POA for Healthcare: No
[2024-07-04] MEDS: HYDROMORPHONE HCL 1 MG/ML INJ IV PRN (21:12)
[2024-07-04] MEDS: NA CHLORIDE 0.9% 1,000 ML IV SCH (21:18)
[2024-07-04] MEDS: PIPER TAZO 3.375 GM in NA CHLORIDE 0.9% 100 ML IV SCH (21:18)
[2024-07-04 21:42] LABS: Magnesium 1.9 mg/dL (1.6-2.4); Phosphorus 3.2 mg/dL (2.5-4.9)
[2024-07-04 22:02] VITALS: BMI 34.7
--- NOTE | 2024-07-05 07:25 | P.PN ---
Date of Service: 07/05/24 Subjective: seen post-op doing well pain starting to ramp up, otherwise doing well Physical Exam: GEN: Alert, oriented, NAD CV: Regular rate and rhythm Pulm: Nonlabored respirations on room air, clear bilaterally ABD: soft, nontender, nondistended Avila placed in ED Problem List: Perirectal abscess, 2.7 x 3.1cm now s/p I&D Acute urinary retention Hx BPH NIDDM2 GERD Hypertension Hyperlipidemia Tobacco use Perirectal abscess, 2.7 x 3.1cm on admission, presents with worsening rectal pain for ~3 days associated with chills. Denies drainage. Reports hx of prior perirectal abscess 30+ years ago. 07/04 - CT abd consistent with perirectal abscess, 2.7 x 3.1cm Given IVF, IV zosyn, flomax, banana bag, pain meds in ED. Dr. Dempsey, general surgeon consulted 07/05 - Continue IV zosyn (07/04-) IV fluids, pain control s/p I&D Acute urinary retention Hx BPH Patient states he hasn't been able to urinate in 2 days. Only dribbling, associated with increased abdominal pressure. Has prior history of BPH. Has taken flomax in the past per EMR PSA 0.45 on 02/23/24 per OSH recs confirm home meds, restart as appropriate 07/04 - Bladder scan done in the ER with 1200ml urine Avila placed in ED and yielded ~1L urine Given flomax 0.4 mg in ED Urology consulted on admission, however not vp information technology/available 07/05 - pt denies any urinary retention issues in past given location of abscess / size, suspect inflammation and infxn contributing to retention now s/p I&D will dc avila for voiding trial on 07/06 AM NIDDM2 GERD Hypertension Hyperlipidemia accu-cheks, SSI a1c 6.7; improved compared to 8.2 - 02/2024 confirm home meds Tobacco use cessation advised Code: Full Dispo: Home, ~1-2 days Time Spent Managing Pts Care (In Minutes): 55
[2024-07-05 08:43] LABS: Absolute Basophils 0.2 K/uL (0-0.5); Absolute Eosinophils 0.3 K/uL (0-0.5); Absolute Lymphocytes (CBC) 2.9 K/uL (0.7-4.9); Basophils % 1.2 % (0-1.3); Eosinophils % 2.1 % (0-4.4); Hematocrit 38.5 % (39.6-49.0); Hemoglobin 12.8 g/dL (13.6-17.9); Lymphocytes % 18.7 % (15.3-44.8); MCH 28.5 pg (27.0-35.0); MCHC 33.3 g/dL (32.0-36.0); MCV 85.5 fL (80-100); MPV 9.7 fL (7.6-11.3); Monocytes % 6.3 % (3.3-12.3); Neutrophils % 71.7 % (41.7-73.7); Platelets 175 thou/uL (152-406); RBC Red Blood Cell Count 4.49 M/uL (4.33-5.43); Red Cell Distribution Width 13.9 % (12.1-15.2)
[2024-07-05] MEDS ORDERED: ENOXAPARIN 40 MG/0.4 ML SQ SCH (09:00)
[2024-07-05 09:06] LABS: Albumin 3.1 g/dL (3.4-5.0); Albumin/Globulin Ratio 0.9 (1.1-1.8); Anion Gap 7.4 mEq/L (5.0-15.0); Bilirubin Total 0.5 mg/dL (0.2-1.0); Globulin 3.6 g/dL (2.3-3.5); Potassium 4.4 mEq/L (3.5-5.1); Protein, Total 6.7 g/dL (6.4-8.2)
[2024-07-05] MEDS: SUCCINYLCHOLINE 20 MG/ML (10 ML) IV ONE (10:16)
[2024-07-05] MEDS ORDERED: propofoL 200 MG/20 ML VIAL IV ONE (10:30)
[2024-07-05] MEDS ORDERED: FENTANYL CITR 100 MCG/2 ML ONE (10:30)
[2024-07-05] MEDS ORDERED: MIDAZOLAM HCL 2 MG/2 ML INJ ONE (10:30)
[2024-07-05] MEDS: METHYLENE BLUE 1% 10 ML VIAL ONE (10:49)
[2024-07-05] MEDS: LIDOCAINE HCL/EPINEPHRINE 20 ML MDV ONE (11:12)
--- NOTE | 2024-07-05 11:12 | P.OP ---
Preoperative diagnosis: Perirectal Abscess Postoperative diagnosis: Perirectal Abscess Primary procedure: Exam under anesthesia Secondary procedure: Incision and Drainage of Perirectal Abscess Anesthesia: GETA + Local Estimated blood loss: <10cc Specimen: Cultures Findings: ~ 3cm Supralevator Multiloculated Abscess Complications: None Transferred to: Recovery Room Condition: Good
[2024-07-05] MEDS: ONDANSETRON 4 MG/2 ML VIAL ONE (11:38)
[2024-07-05 11:41] VITALS: O2SAT 100
--- NOTE | 2024-07-05 11:50 | OP ---
Date of Procedure: 07/05/2024 Surgeon: Johan Dempsey MD, Preoperative Diagnosis: Perirectal abscess. Postoperative Diagnosis: Perirectal abscess. Procedures Performed: 1. Exam under anesthesia. 2. Incision and drainage of perirectal abscess. Anesthesia: General endotracheal plus local with 1% lidocaine with epinephrine. Estimated Blood Loss: Less than 2 cc. Specimens: Culture sent for both aerobic and anaerobic speciation. Findings: Approximately 3 cm supralevator multiloculated abscess. Complications: None. Disposition: The patient was transferred to recovery room in good condition. Procedure In Detail: After informed consent was obtained, the patient was brought to the operating r oom, prepped and draped in the usual sterile fashion. After adequate anesthesia was achieved, the pa tient was in lithotomy position. I performed a digital rectal examination and placed a small anoscop e into the anal canal. No obvious lesions were appreciated, but there was some bulging on the right side of the rectal wall. I palpated this area after removing the anoscope and felt to be consistent with the abscess in question in the supralevator position. I then made an incision on the right side in a radial fashion. I then digitized the tract and placed a small probe into the cavity. Abscess material was appreciated at this point. This was then cultured both for aerobic and anaerobic specia tion. I then placed a hemostat in to dilate this up slightly and then I placed my finger inside the cavity to open it up in its entirety. Multiple loculations were brought up and the remaining abscess material was removed. At this point, the area was copiously irrigated multiple times with sterile s estevan and then packed with 0.5 inch plain gauze, damp to dry with Vashe material and a sterile dressi ng placed over top. The patient tolerated the procedure without incident or complication and transfe rred to PACU in good condition. All counts were correct at the end of the case. TK/KIRBYL Voice ID: [id number] Report ID: [id number]
[2024-07-05] MEDS: HYDROCODONE/APAP 5/325 MG TAB PO PRN (12:26)
--- NOTE | 2024-07-05 15:15 | CON ---
Date of Consultation: 07/05/2024 Brief History Of Present Illness: The patient is a 59-year-old male with a past medical hi story of morbid obesity, diabetes, who has been losing weight recently. However, he noted increased amount of perirectal pain. He has had a history of a perirectal abscess before in the past drained a nd required packing in the past. In addition, he has noted several other areas of abscess including his armpits, groin creases, butt area, and has had multiple facial abscesses as well. He ultimately has had multiple drainages of abscess and collections in the past, but has never had any formal karissa p for these with the exception of the surgical intervention for drainage of these abscesses in the [facility]. He now presents with perirectal pain similar to previous episodes. Past Medical History: Significant for obesity, diabetes, urinary retention, prostate issues, perirec perla abscess. Past Surgical History: Includes drainage of multiple abscesses including perirectal, facial, and mul tiple areas of his body abscesses before in the past. Social History: He denies smoking, alcohol, recreational drug use. Review of Systems: 10-point review of systems other than HPI, denies. Physical Examination: General: At the time of my examination, he is awake, alert, oriented. Psychiatric: Appropriate. Conversive. HEENT: Normocephalic. Sclerae anicteric. Mucous membranes are moist. Oropharynx clear. Neck: Supple. No JVD. Chest: Has normal expansion and excursion. Cardiovascular: Regular rate and rhythm. Pulmonary: Clear to auscultation bilaterally. Abdomen: Soft, nontender, nondistended. No rebound. No guarding. No focal peritonitis. Extremities: No clubbing, cyanosis, edema. Skin: Warm, dry. Perirectal examination: He has perirectal tenderness particularly to the right of midline. He has h emorrhoids, which are internal and external obvious on examination without evidence of thrombosis or bleeding. The remainder of his skin examination shows evidence of possible hidradenitis suppurativa to axillary, groin areas, perianal areas, perineal areas, and other skin areas in a typical pattern. Laboratory Data: Reveals white blood count of 17.7, hemoglobin is 13.5, hematocrit of 39.7, platelet count is 190. PT 13.0, INR 1.15. Sodium 138, potassium 3.8, chloride 105, carbon dioxide 27, BUN 1 4, creatinine 0.87, glucose is 121. A1c 6.7, lactic acid 0.8, total bilirubin 0.3. AST is less than 10, ALT 20, alkaline phosphatase 103, lipase is 31. UA is essentially negative. He had imaging per formed, which included a CT of the abdomen and pelvis, officially read as a right perirectal/upper an al canal fluid collection measuring up to 3.1 cm with adjacent inflammatory changes concerning for an abscess formation. Assessment And Plan: This is a 59-year-old male, who comes in with signs and symptoms of a perirecta l abscess. 1. IV fluid hydration. 2. Antibiotic coverage. 3. I explained risks, benefits, and alternatives of exam under anesthesia and drainage of perirectal abscess, including but not limited to bleeding, infection, damage to surrounding tissues, need furthe r operation procedures, incontinence issues, urinary retention, long-term wound care, blood clots, he art attack, strokes, and other unforeseen complications in the perioperative period. Patient display ed understanding of above stated plan and agrees to proceed as indicated. Thank you for this interesting consult. NOÉ/VAHID Voice ID: [id number] Report ID: [id number]
[2024-07-05] MEDS: ENOXAPARIN 40 MG/0.4 ML SQ SCH (15:16)
[2024-07-06 09:06] VITALS: BP 166/78; TEMP 98.2
--- NOTE | 2024-07-06 09:36 | P.DS ---
Admission Date: 07/06/24 Discharge Date: 07/06/24 Disposition: ROUTINE DISCHARGE Discharge Condition: GOOD Reason for Admission: Perirectal abscess Consultations: General Surgery - Dr. Dempsey Brief History of Present Illness: 59 yo M, PMH: morbid obesity and type 2 diabetes mellitus. Patient presents with a perirectal abscess. He has a history of perirectal abscess that occurred 30 years ago. He has been stable since. Over the past 3 days, he has noted increasing amount of pain in the rectal area. Associated symptoms include chills which occurred the day before presentation. He denies any evidence of drainage. He has lost a significant amount of weight after engaging lower carb diet. CT abdomen pelvis revealed a 3.1 cm perirectal abscess. He is being admitted for I&D by general surgery. Dr. Hernandez consulted. Of note, patient has also developed a urinary retention. He has been unable to evacuate his bladder even with increased intra-abdominal pressure. He is only seeing dribbling. He now has a Avila catheter which yielded a liter upon placement. Hospital Course: Problem List: Perirectal abscess, 2.7 x 3.1cm now s/p I&D Acute urinary retention secondary to infection, resolved NIDDM2 GERD Hypertension Hyperlipidemia Tobacco use Hx BPH Physician discharge instructions: Patient presented with worsening rectal pain for ~3 days associated with chills secondary to perirectal abscess measuring 2.[address] abdomen with findings consistent with a perirectal abscess. Patient was evaluated by Dr. Dempsey, general surgeon and underwent I&D of abscess on 07/05. Patient demonstrated improvement post-operatively. His slowly slowly improved and was more tolerable on oral pain medication. Patient was feeling better, afebrile > 24 hours, leukocytosis improving, pain improving and was deemed stable for discharge. Patient ambulating around the floor multiple times without issues and passing gas on day of discharge. Patient received ~2 days of IV zosyn while hospitalized and is to complete 1 more week of oral Augmentin on discharge. Follow up with Dr. Dempsey in 1 week for further management, wound care. Call to schedule appointment. He was found to have urinary retention in the ED with 1.2L in bladder secondary to this abscess/infection. Avila was placed and subsequently removed after surgery. He was able to urinate without issue after avila removal. Medications: Augmentin x7 days Cu[place] 7/325 15 pills as needed for pain If still in pain after taking norco, advised to take ibuprofen in between doses to help with inflammation/pain. Follow up: PCP 3-5 days Please call to schedule / confirm appointments No heavy lifting > 10 lbs for 4-6 weeks or otherwise instructed by Dr. Dempsey Do not submerge wound underwater. Daily wound care per Dr. Dempsey Daily dressing changes: Remove all dressings 48 hours after surgery from perirectal wound irrigate cavity then repack with 1/2 inch or 1/4 inch plain packing damp with Vashe then dry packing over the top. Dressings need to be changed daily and as needed if soiled. Physical Exam: GEN: Alert, oriented, NAD CV: Regular rate and rhythm Pulm: Nonlabored respirations on room air, clear bilaterally ABD: soft, nontender, nondistended Integumentary: perirectal area with dressing in place Vital Signs/Physical Exam: Temp Pulse Resp BP Pulse Ox 98.2 F 81 18 166/78 H 98 07/06/24 08:00 07/06/24 08:00 07/06/24 08:00 07/06/24 08:00 07/06/24 08:00 Laboratory Data at Discharge: WBC Cancelled 07/06/24 09:30 Hgb Cancelled 07/06/24 09:30 Hct Cancelled 07/06/24 09:30 Plt Count Cancelled 07/06/24 09:30 PT 13.0 SECONDS (10-13.0) 07/04/24 16:37 INR 1.15 07/04/24 16:37 Sodium 138 mEq/L (136-145) 07/05/24 08:19 Potassium 4.4 mEq/L (3.5-5.1) D 07/05/24 08:19 BUN 10 mg/dL (7-18) 07/05/24 08:19 Creatinine 0.89 mg/dL (0.70-1.30) 07/05/24 08:19 Glucose 147 mg/dL (74-106) H 07/05/24 08:19 Phosphorus 3.2 mg/dL (2.5-4.9) 07/04/24 21:20 Magnesium 1.9 mg/dL (1.6-2.4) 07/04/24 21:20 Total Bilirubin 0.5 mg/dL (0.2-1.0) 07/05/24 08:19 AST 13 U/L (15-37) L 07/05/24 08:19 ALT 21 U/L (16-61) 07/05/24 08:19 Alkaline Phosphatase 96 U/L (45-117) 07/05/24 08:19 Lipase 31 U/L (13-75) 07/04/24 16:37 Home Medications: Ibuprofen 800 mg PO PRN PRN 07/05/24 Metformin HCl [Glucophage*] 500 mg PO BID 07/05/24 Omeprazole 20 mg PO DAILY 07/05/24 Tamsulosin [Flomax*] 0.4 mg PO DAILY 07/05/24 lisinopriL [Lisinopril] 20 mg PO BID 07/05/24 Amox/Clavulanate [Augmentin 875-125 Tab] 1 tab PO BID 7 Days #14 tab 07/06/24 Hydrocodone 7.5/APAP 325 [Cuero 7.5/325 mg*] 1 tab PO Q6H PRN #20 tab 07/06/24 New Medications: Amox/Clavulanate [Augmentin 875-125 Tab] 1 tab PO BID 7 Days #14 tab Hydrocodone 7.5/APAP 325 [Cu[place] 7.5/325 mg*] 1 tab PO Q6H PRN #20 tab PRN Reason: Pain Physician Discharge Instructions: Physician discharge instructions: Patient presented with worsening rectal pain for ~3 days associated with chills secondary to perirectal abscess measuring 2.[address] abdomen with findings consistent with a perirectal abscess. Patient was evaluated by Dr. Dempsey, general surgeon and underwent I&D of abscess on 07/05. Patient demonstrated improvement post-operatively. His slowly slowly improved and was more tolerable on oral pain medication. Patient was feeling better, afebrile > 24 hours, leukocytosis improving, pain improving and was deemed stable for discharge. Patient ambulating around the floor multiple times without issues and passing gas on day of discharge. Patient received ~2 days of IV zosyn while hospitalized and is to complete 1 more week of oral Augmentin on discharge. Follow up with Dr. Dempsey in 1 week for further management, wound care. Call to schedule appointment. On admission, patient stated he hadn't been able to urinate in 2+ days associated with increased abdominal pressure. He has a history of BPH. Patient denied any urinary retention issues in the past. Bladder scan done in the ER with 1200ml urine. He had a avila placed, was given flomax 0.4 mg and was able to yield ~1 liter of urine. Urology was consulted on admission however not technical solutions director/available during hospitalization. He was able to urinate without issues after avila was removed post-operatively. Acute urinary retention secondary to infection. Medications: Augmentin x7 days [place] 7/325 15 pills as needed for pain If still in pain after taking norco, advised to take ibuprofen in between doses to help with inflammation/pain. Follow up: PCP 3-5 days Please call to schedule / confirm appointments No heavy lifting > 10 lbs for 4-6 weeks or otherwise instructed by Dr. Dempsey Do not submerge wound underwater. Daily wound care per Dr. Dempsey Daily dressing changes: Remove all dressings 48 hours after surgery from perirectal wound irrigate cavity then repack with 1/2 inch or 1/4 inch plain packing damp with Vashe then dry packing over the top. Dressings need to be changed daily and as needed if soiled. Diet: Regular Activity: No lifting more than 10 lbs Followup: Johan Dempsey MD [ACTIVE - CAN ADMIT] - Aaron Aguilar MD [Primary Care Provider] - Time spent managing pt's care (in minutes): 45
--- NOTE | 2024-07-07 12:15 | EKG ---
Test Date: 2024-07-04 Test Time: 16:47:40 Dipper Operator: DANN MEASUREMENT RESULTS: Intervals: Rate: 88 TX: 150 QRSD: 112 QT: 374 QTc: 452 [place]: P: 67 TX: 150 QRS: 27 T: 59 INTERPRETIVE STATEMENTS: Normal sinus rhythm Normal ECG Compared to ECG 04/23/2001 07:04:00 No significant changes Electronically Signed On 07-07-24 12:09:24 CDT by Darwin Stewart
== END 2024-07-06 11:25 | disposition home or self-care (01) | DRG 346 ==
LOC: ER 15:36 → ERHOLD 19:00 → 2ND 19:56 → OBSVTOIN 07-06 06:12
PROVIDERS: ADMIT Internal Medicine; ATTEND Hospitalist
PROC: 0D9P0ZZ Drainage of Rectum, Open Approach (ICD-10-PCS; principal; 2024-07-05 09:30)
PROC: 0T9B70Z Drainage of Bladder with Drainage Device, Via Natural or Artificial Opening (ICD-10-PCS; 2024-07-06)
DX: K61.1 Rectal abscess (principal); I10 Essential (primary) hypertension; E78.5 Hyperlipidemia, unspecified; K64.8 Other hemorrhoids; K64.4 Residual hemorrhoidal skin tags; E11.9 Type 2 diabetes mellitus without complications; E66.01 Morbid (severe) obesity due to excess calories; K21.9 Gastro-esophageal reflux disease without esophagitis; N40.0 Benign prostatic hyperplasia without lower urinary tract symptoms; F17.210 Nicotine dependence, cigarettes, uncomplicated; R33.9 Retention of urine, unspecified; Z71.6 Tobacco abuse counseling; Z68.34 Body mass index [BMI] 34.0-34.9, adult; Z79.84 Long term (current) use of oral hypoglycemic drugs
CPT/HCPCS: 36415; 51702; 71045; 74177; 80048; 80053; 80076; 81001; 82947; 83036; 83605; 83690; 83735; 83880; 84100; 84484; 85025; 85610; 87040; 87070; 87075; 87076; 87077; 87185; 87186; 87205; 93005; 96361; 96365; 96366; 96375; 99285; G0378; J1171; J1650; J2250; J2405; J2543; J2704; J3010; J3411; J7030; Q9967